=== PATIENT | female | born 1960 | race Caucasian/White ===

== ENCOUNTER 2017-08-04 19:59 | Emergency (ER) | payer MEDICARE, MEDICAID ==
[~2017-08-04] VITALS: Ht 152.4 cm; Wt 48.5 kg
[~2017-08-04 19:59] MED LIST: HYDR-3245 PO; METH750T2 PO; MILN50TA PO
[2017-08-04] MEDS ORDERED: HYDROcodone/APAP 5/325 TABLET PO STA (20:55)
[2017-08-04] MEDS ORDERED: IBUPROFEN 200 MG TABLET PO ONE (21:00)
[2017-08-04] MEDS ORDERED: HYDROcodone/APAP 5/325 TABLET ONE (21:03)
[2017-08-04] MEDS ORDERED: IBUPROFEN 200 MG TABLET ONE (21:03)
[2017-08-04 21:31] VITALS: BP 112/62
== END 2017-08-04 21:34 | disposition home or self-care (01) ==
LOC: ED 21:27
DX: M13.111 Monoarthritis, not elsewhere classified, right shoulder (principal); F17.210 Nicotine dependence, cigarettes, uncomplicated
CPT/HCPCS: 99284

== ENCOUNTER 2017-08-26 21:14 | Emergency (ER) | payer MEDICARE, MEDICAID ==
[~2017-08-26] VITALS: Ht 152.4 cm; Wt 45.0 kg
[2017-08-26 22:12] VITALS: BP 101/58
== END 2017-08-26 22:27 | disposition home or self-care (01) ==
LOC: ED 22:12
DX: F10.220 Alcohol dependence with intoxication, uncomplicated (principal); E78.5 Hyperlipidemia, unspecified; F17.200 Nicotine dependence, unspecified, uncomplicated; Z72.9 Problem related to lifestyle, unspecified
CPT/HCPCS: 99283

== ENCOUNTER 2017-11-10 19:00 | Emergency (ER) | payer MEDICARE, MEDICAID ==
[~2017-11-10] VITALS: Ht 152.4 cm; Wt 50.0 kg
[2017-11-10 19:04] VITALS: BP 131/85
== END 2017-11-10 20:40 | disposition home or self-care (01) ==
LOC: ED 20:06
DX: S70.12XA Contusion of left thigh, initial encounter (principal); E78.5 Hyperlipidemia, unspecified; M19.90 Unspecified osteoarthritis, unspecified site; W01.0XXA Fall on same level from slipping, tripping and stumbling without subsequent striking against object, initial encounter; Y93.89 Activity, other specified; Y99.8 Other external cause status; Y92.009 Unspecified place in unspecified non-institutional (private) residence as the place of occurrence of the external cause
CPT/HCPCS: 72110; 99284

== ENCOUNTER 2017-12-09 15:03 | Emergency (ER) | payer MEDICARE, MEDICAID ==
[~2017-12-09] VITALS: Ht 152.4 cm; Wt 51.5 kg
[2017-12-09] MEDS ORDERED: ALBU90AE INH (15:19)
[2017-12-09] MEDS ORDERED: GABA-827 PO (15:19)
[2017-12-09] MEDS ORDERED: HYDR200T72 PO (15:19)
[2017-12-09] MEDS ORDERED: steroid inhaler INH (15:19)
[2017-12-09] MEDS ORDERED: OMEP10CA4 PO (15:19)
[2017-12-09] MEDS ORDERED: IBUP-1222 PO (15:19)
[2017-12-09] MEDS ORDERED: AMIT10TA PO (15:19)
[2017-12-09] MEDS ORDERED: IBUPROFEN 200 MG TABLET ONE (15:21)
[2017-12-09] MEDS ORDERED: IBUPROFEN 200 MG TABLET PO ONE (15:30)
[2017-12-09 15:53] VITALS: BP 101/58
== END 2017-12-09 16:21 | disposition home or self-care (01) ==
LOC: ED 16:15
DX: S90.32XA Contusion of left foot, initial encounter (principal); E78.5 Hyperlipidemia, unspecified; F17.200 Nicotine dependence, unspecified, uncomplicated; X50.1XXA Overexertion from prolonged static or awkward postures, initial encounter; Y93.89 Activity, other specified; Y99.8 Other external cause status; Y92.410 Unspecified street and highway as the place of occurrence of the external cause
CPT/HCPCS: 99284

== ENCOUNTER 2018-01-26 15:16 | Inpatient (IN) | payer MEDICARE, MEDICAID ==
[~2018-01-26] VITALS: Ht 152.4 cm; Wt 51.8 kg
[~2018-01-26 15:16] MED LIST changes: +ALBU90AE INH; +AMIT10TA PO; +GABA-827 PO; +HYDR200T72 PO; +IBUP-1222 PO; +OMEP10CA4 PO; +steroid inhaler INH
[2018-01-26 17:09] LABS: MEAN CORPUSCULAR HEMOGLOBIN 33.4 pg (27.0-34.8); MEAN CORPUSCULAR HGB CONC 33.5 g/dL (32.4-35.8); MEAN CORPUSCULAR VOLUME 99.7 fL (80-100); MEAN PLATELET VOLUME 8.2 fL (7.4-10.4); PLATELET COUNT 294 x10^3/uL (130-400); RED BLOOD COUNT 4.02 x10^6/uL (3.82-5.3); RED CELL DISTRIBUTION WIDTH 15.7 % (9.6-15.2)
[2018-01-26 17:16] LABS: ALBUMIN 3.2 g/dL (3.4-5.0); ANION GAP 9 mmol/L (5-15); CALCIUM 9.3 mg/dL (8.5-10.1); CHLORIDE 104 mmol/L (98-107); CREATININE 0.87 mg/dL (0.55-1.02)
[2018-01-26 17:30] LABS: MD YES
[2018-01-26 17:33] LABS: <PLATELET ESTIMATE> ADEQUATE; <PLT MORPHOLOGY> NORMAL PLT MORPH; ANISOCYTOSIS 1+; BAND#(MANUAL) 4.08 x10^3/uL; BANDS%(MANUAL) 20 % (0-7); EOS% (MANUAL) 1 % (1-7); LYMPH#(MANUAL) 4.08 x10^3/uL (1-3.4); LYMPHS% (MANUAL) 20 % (22-44); MONOS#(MANUAL) 1.43 x10^3/uL (0.3-2.7); MONOS% (MANUAL) 7 % (2-9); POLYCHROMASIA 1+; SEG#(MANUAL) 10.61 x10^3/uL (1.8-6.8); SEGS% (MANUAL) 52 % (42-75)
[2018-01-26] MEDS ORDERED: PROM25SU35 PR (19:24)
[2018-01-26] MEDS ORDERED: ACETAMINOPHEN 325 MG TABLET PO PRN (22:00)
[2018-01-26] MEDS ORDERED: GUAIFENESIN/DM 200-20MG, 10ML UDC PO PRN (22:00)
[2018-01-26] MEDS ORDERED: ALBUTEROL/IPRATROPIUM 2.5MG/0.5MG, 3 ML NPPB PRN (22:00)
[2018-01-26] MEDS: ENOXAPARIN 40 MG/0.4 ML SQ SCH (22:49)
[2018-01-26] MEDS: NICOTINE 14MG/24 HR PATCH.TD24 TD SCH (22:50)
[2018-01-26] MEDS: TEMAZEPAM 15 MG CAPSULE PO PRN (22:50)
[2018-01-26] MEDS: GABAPENTIN 300 MG CAPSULE PO SCH (22:50)
[2018-01-26] MEDS: AMITRIPTYLINE 50 MG TABLET PO SCH (22:50)
[2018-01-26] MEDS: IBUPROFEN 600 MG TABLET PO SCH (22:50)
[2018-01-26] MEDS: SODIUM CHLORIDE 0.9% 1,000 ML IV SCH (22:51)
[2018-01-26] MEDS: CEFTRIAXONE PMX 1GM/50ML 50 ML IV SCH (22:51)
[2018-01-26 23:07] VITALS: BP 134/81
[2018-01-27] MEDS: AZITHROMYCIN 500 MG in SODIUM CHLORIDE 0.9% 250 ML IV SCH (00:02)
[2018-01-27 02:55] VITALS: BP 109/70
[2018-01-27] MEDS: ALBUTEROL SULFATE 2.5 MG/3 ML NPPB SCH ×4 (06:39→19:16)
[2018-01-27 06:45] VITALS: BP 111/75
[2018-01-27 09:06] LABS: MEAN CORPUSCULAR HEMOGLOBIN 33.2 pg (27.0-34.8); MEAN CORPUSCULAR VOLUME 100.6 fL (80-100); MEAN PLATELET VOLUME 8.2 fL (7.4-10.4); PLATELET COUNT 263 x10^3/uL (130-400); RED BLOOD COUNT 3.63 x10^6/uL (3.82-5.3); RED CELL DISTRIBUTION WIDTH 15.9 % (9.6-15.2)
[2018-01-27 09:14] LABS: ANION GAP 10 mmol/L (5-15); CALCIUM 8.4 mg/dL (8.5-10.1); CHLORIDE 110 mmol/L (98-107); CREATININE 0.58 mg/dL (0.55-1.02)
[2018-01-27] MEDS ORDERED: POTASSIUM CHLORIDE 20 MEQ TAB.ER.PRT PO ONE (09:30)
[2018-01-27 09:38] LABS: BASOPHILS # (AUTO) 0.09 x10^3/uL (0-0.1); BASOPHILS % (AUTO) 1 % (0-1); EOSINOPHILS # (AUTO) 0.23 x10^3/uL (0-0.4); EOSINOPHILS % (AUTO) 2 % (1-7); LYMPHOCYTES # (AUTO) 2.68 x10^3/uL (1-3.4); LYMPHOCYTES % (AUTO) 22 % (22-44); MD SCAN; MONOCYTES # (AUTO) 0.65 x10^3/uL (0.2-0.8); MONOCYTES % (AUTO) 5 % (2-9); NEUTROPHILS # (AUTO) 8.57 x10^3/uL (1.8-6.8); NEUTROPHILS % (AUTO) 70 % (42-75)
[2018-01-27] MEDS: GABAPENTIN 300 MG CAPSULE PO SCH ×2 (10:35→20:33)
[2018-01-27] MEDS: IBUPROFEN 600 MG TABLET PO SCH ×3 (10:35→20:33)
[2018-01-27] MEDS: CEFTRIAXONE PMX 1GM/50ML 50 ML IV SCH ×2 (10:35→20:33)
[2018-01-27] MEDS: SODIUM CHLORIDE 0.9% 1,000 ML IV SCH ×2 (10:35→16:15)
[2018-01-27] MEDS: GUAIFENESIN ER 600 MG TABLET PO SCH ×2 (10:35→20:33)
[2018-01-27] MEDS: BUDESONIDE 0.5 MG/2 ML INHA NPPB SCH ×2 (10:42→19:16)
[2018-01-27 12:44] VITALS: BP 109/78
[2018-01-27 19:08] VITALS: BP 121/78
[2018-01-27] MEDS: NICOTINE 14MG/24 HR PATCH.TD24 TD SCH (20:33)
[2018-01-27] MEDS: AMITRIPTYLINE 50 MG TABLET PO SCH (20:33)
[2018-01-27] MEDS: ENOXAPARIN 40 MG/0.4 ML SQ SCH (20:33)
[2018-01-27] MEDS: TEMAZEPAM 15 MG CAPSULE PO PRN (20:33)
[2018-01-28] MEDS: AZITHROMYCIN 500 MG in SODIUM CHLORIDE 0.9% 250 ML IV SCH (00:13)
[2018-01-28 02:14] VITALS: BP 135/89
[2018-01-28] MEDS: SODIUM CHLORIDE 0.9% 1,000 ML IV SCH ×2 (02:34→10:06)
[2018-01-28 05:13] LABS: ANION GAP 7 mmol/L (5-15); CALCIUM 7.8 mg/dL (8.5-10.1); CHLORIDE 116 mmol/L (98-107); CREATININE 0.68 mg/dL (0.55-1.02)
[2018-01-28 05:22] LABS: BASOPHILS # (AUTO) 0.03 x10^3/uL (0-0.1); BASOPHILS % (AUTO) 0 % (0-1); EOSINOPHILS % (AUTO) 4 % (1-7); LYMPHOCYTES # (AUTO) 3.19 x10^3/uL (1-3.4); LYMPHOCYTES % (AUTO) 33 % (22-44); MD NO; MEAN CORPUSCULAR HEMOGLOBIN 33.8 pg (27.0-34.8); MEAN CORPUSCULAR HGB CONC 33.1 g/dL (32.4-35.8); MEAN CORPUSCULAR VOLUME 102.3 fL (80-100); MEAN PLATELET VOLUME 8.3 fL (7.4-10.4); MONOCYTES # (AUTO) 0.83 x10^3/uL (0.2-0.8); MONOCYTES % (AUTO) 9 % (2-9); NEUTROPHILS # (AUTO) 5.21 x10^3/uL (1.8-6.8); NEUTROPHILS % (AUTO) 54 % (42-75); PLATELET COUNT 305 x10^3/uL (130-400); RED BLOOD COUNT 3.47 x10^6/uL (3.82-5.3); RED CELL DISTRIBUTION WIDTH 16.1 % (9.6-15.2)
[2018-01-28] MEDS: ALBUTEROL SULFATE 2.5 MG/3 ML NPPB SCH ×3 (06:59→14:32)
[2018-01-28] MEDS: BUDESONIDE 0.5 MG/2 ML INHA NPPB SCH (06:59)
[2018-01-28 07:49] VITALS: BP 130/85
[2018-01-28] MEDS ORDERED: AZIT250T PO (08:13)
[2018-01-28] MEDS ORDERED: CEFD300C37 PO (08:13)
[2018-01-28] MEDS ORDERED: GUAI600T31 PO (08:13)
[2018-01-28] MEDS: GUAIFENESIN ER 600 MG TABLET PO SCH (08:43)
[2018-01-28] MEDS: GABAPENTIN 300 MG CAPSULE PO SCH (08:43)
[2018-01-28] MEDS: IBUPROFEN 600 MG TABLET PO SCH ×2 (08:43→16:00)
[2018-01-28] MEDS: CEFTRIAXONE PMX 1GM/50ML 50 ML IV SCH (10:06)
[2018-01-28 13:12] VITALS: BP 148/90
== END 2018-01-28 17:54 | disposition home or self-care (01) | DRG 871 ==
LOC: ED 17:51 → EDIP 19:42 → 3NE 20:06
PROVIDERS: ADMIT Internal Medicine; ATTEND Internal Medicine
DX: A41.9 Sepsis, unspecified organism (principal); J15.9 Unspecified bacterial pneumonia; J96.91 Respiratory failure, unspecified with hypoxia; J44.0 Chronic obstructive pulmonary disease with (acute) lower respiratory infection; F17.203 Nicotine dependence unspecified, with withdrawal; M06.9 Rheumatoid arthritis, unspecified; G89.4 Chronic pain syndrome; E78.5 Hyperlipidemia, unspecified; I70.0 Atherosclerosis of aorta; Z79.899 Other long term (current) drug therapy; Z91.030 Bee allergy status; Z88.2 Allergy status to sulfonamides; Z91.018 Allergy to other foods
CPT/HCPCS: 36415; 71046; 71250; 80048; 82040; 83605; 84145; 85025; 87040; 87070; 87205; 93005; 94640; 99291; G0378; J0456; J0696; J1650; J7613; J7626; J7030; J7050

== ENCOUNTER 2018-02-12 16:43 | Emergency (ER) | payer MEDICARE, MEDICAID ==
[~2018-02-12] VITALS: Ht 152.4 cm; Wt 55.0 kg
[~2018-02-12 16:43] MED LIST changes: +AZIT250T PO; +CEFD300C37 PO; +GUAI600T31 PO; +PROM25SU35 PR
--- NOTE | 2018-02-12 17:11 | NUR ---
PATIENT SLEEPING WITH COVERS OVER HEAD.
[2018-02-12 18:05] LABS: ANION GAP 9 mmol/L (5-15); CALCIUM 9.3 mg/dL (8.5-10.1); CHLORIDE 111 mmol/L (98-107); SALICYLATE LEVEL 4.5 mg/dL (2.8-20.0)
[2018-02-12 18:08] LABS: ALANINE AMINOTRANSFERASE 20 U/L (12-78); ALKALINE PHOSPHATASE 64 U/L (45-117); BILIRUBIN,TOTAL 0.2 mg/dL (0.2-1.0); CREATININE 0.77 mg/dL (0.55-1.02); TOTAL PROTEIN 8.2 g/dL (6.4-8.2)
[2018-02-12 18:09] LABS: ACETAMINOPHEN < 2 mcg/mL (10-30); MEAN CORPUSCULAR HGB CONC 33.3 g/dL (32.4-35.8); MEAN CORPUSCULAR VOLUME 102.1 fL (80-100); MEAN PLATELET VOLUME 8.5 fL (7.4-10.4); PLATELET COUNT 380 x10^3/uL (130-400); RED BLOOD COUNT 4.03 x10^6/uL (3.82-5.3)
[2018-02-12 18:16] LABS: BASOPHILS # (AUTO) 0.08 x10^3/uL (0-0.1); BASOPHILS % (AUTO) 1 % (0-1); EOSINOPHILS # (AUTO) 0.32 x10^3/uL (0-0.4); EOSINOPHILS % (AUTO) 4 % (1-7); LYMPHOCYTES # (AUTO) 4.48 x10^3/uL (1-3.4); LYMPHOCYTES % (AUTO) 50 % (22-44); MONOCYTES # (AUTO) 0.46 x10^3/uL (0.2-0.8); MONOCYTES % (AUTO) 5 % (2-9); NEUTROPHILS # (AUTO) 3.62 x10^3/uL (1.8-6.8); NEUTROPHILS % (AUTO) 40 % (42-75); RED CELL DISTRIBUTION WIDTH 15.8 % (9.6-15.2)
[2018-02-12 18:32] LABS: HEMOGRAM NOTE RECHECKED
[2018-02-12 18:33] LABS: MD SCAN
--- NOTE | 2018-02-12 18:38 | NUR ---
PATIENT RESTING. NEED UA
--- NOTE | 2018-02-12 19:13 | NUR ---
REPORT FROM LULY LEHMAN ASLEEP RESOPNTS TO VERBAL COMMAND
[2018-02-12 21:01] VITALS: BP 100/58
== END 2018-02-12 21:03 | disposition home or self-care (01) ==
LOC: ED 17:59
DX: F10.120 Alcohol abuse with intoxication, uncomplicated (principal); J44.9 Chronic obstructive pulmonary disease, unspecified; M19.90 Unspecified osteoarthritis, unspecified site; E78.5 Hyperlipidemia, unspecified
CPT/HCPCS: 36415; 71045; 80053; 80307; 80329; 85025; 99284; G0480

== ENCOUNTER 2018-03-06 17:40 | Emergency (ER) | payer MEDICARE, MEDICAID ==
[~2018-03-06] VITALS: Ht 152.4 cm; Wt 49.0 kg
--- NOTE | 2018-03-06 18:43 | NUR ---
PT AMBULATORY TO ED ROOM 35, THEN TO [facility] BR W/OUT INCIDENT; GAIT STEADY.
[2018-03-06] MEDS ORDERED: BENZONATATE 100 MG CAPSULE PO ONE (19:00)
[2018-03-06 19:20] LABS: BASOPHILS # (AUTO) 0.08 x10^3/uL (0-0.1); BASOPHILS % (AUTO) 1 % (0-1); EOSINOPHILS # (AUTO) 0.17 x10^3/uL (0-0.4); EOSINOPHILS % (AUTO) 2 % (1-7); LYMPHOCYTES # (AUTO) 3.78 x10^3/uL (1-3.4); LYMPHOCYTES % (AUTO) 52 % (22-44); MD NO; MEAN CORPUSCULAR HEMOGLOBIN 34.6 pg (27.0-34.8); MEAN CORPUSCULAR VOLUME 101.9 fL (80-100); MEAN PLATELET VOLUME 7.4 fL (7.4-10.4); MONOCYTES # (AUTO) 0.74 x10^3/uL (0.2-0.8); MONOCYTES % (AUTO) 10 % (2-9); NEUTROPHILS # (AUTO) 2.48 x10^3/uL (1.8-6.8); NEUTROPHILS % (AUTO) 34 % (42-75); PLATELET COUNT 311 x10^3/uL (130-400); RED BLOOD COUNT 3.81 x10^6/uL (3.82-5.3); RED CELL DISTRIBUTION WIDTH 16.2 % (9.6-15.2)
[2018-03-06] MEDS ORDERED: FLOVENT (19:22)
[2018-03-06] MEDS ORDERED: ALBU18HF INH (19:22)
[2018-03-06] MEDS ORDERED: BENZONATATE 100 MG CAPSULE ONE (19:38)
--- NOTE | 2018-03-06 19:40 | NUR ---
DR MILLAN CONSULTED RE: PAIN FOR PT'S C/O MIGRAINE. VO: TYLENOL 1000MG PO.
[2018-03-06] MEDS ORDERED: ACETAMINOPHEN 500 MG TABLET ONE (19:41)
[2018-03-06] MEDS ORDERED: ACETAMINOPHEN 500 MG TABLET PO ONE (20:00)
--- NOTE | 2018-03-06 20:35 | NUR ---
RESTING QUIETLY ON BED; HEAD COVERED W/ BLANKET. OCCASIONAL DRY COUGH NOTED.
[2018-03-06 20:55] VITALS: BP 138/65
--- NOTE | 2018-03-06 20:55 | NUR ---
JOSUÉ RN ASSISTING PRIMARY RN BARTOLO WITH DISCHARGE ONLY. PT GIVEN DISCHARGE INSTRUCTIONS,VERBALIZED UNDERSTANDING, HANDOUTS AND RX IN HAND. AMBULATED TO CHECKOUT DESK WITH STEADY GAIT. PT PROVIDED TAXI VOUCHER PER REQUEST AND DR. MILLAN.
== END 2018-03-06 20:58 | disposition home or self-care (01) ==
LOC: ED 20:07
DX: R05 Cough (principal); R51 Headache; J44.9 Chronic obstructive pulmonary disease, unspecified; E78.5 Hyperlipidemia, unspecified; M19.90 Unspecified osteoarthritis, unspecified site; F17.200 Nicotine dependence, unspecified, uncomplicated; Z72.9 Problem related to lifestyle, unspecified; Z59.0 Homelessness
CPT/HCPCS: 36415; 71046; 85025; 99284

== ENCOUNTER 2018-03-08 11:20 | Emergency (ER) | payer MEDICARE, MEDICAID ==
[~2018-03-08] VITALS: Ht 152.4 cm; Wt 50.0 kg
[~2018-03-08 11:20] MED LIST changes: +ALBU18HF INH; +FLOVENT
[2018-03-08 11:23] VITALS: BP 111/83
--- NOTE | 2018-03-08 13:01 | NUR ---
Patient/Caregiver given discharge instructions and they have confirmed that they understand the instructions. Patient ambulatory with steady gait.
== END 2018-03-08 13:02 | disposition home or self-care (01) ==
LOC: ED 11:49
DX: J15.9 Unspecified bacterial pneumonia (principal); F17.200 Nicotine dependence, unspecified, uncomplicated
CPT/HCPCS: 71046; 99283

== ENCOUNTER 2018-03-28 12:01 | Emergency (ER) | payer MEDICARE, MEDICAID ==
--- NOTE | 2018-03-28 12:30 | NUR ---
NO ANSWER [phone]
--- NOTE | 2018-03-28 12:42 | NUR ---
NO ANSWER X [phone]
--- NOTE | 2018-03-28 13:09 | NUR ---
NO ANSWER IN LOBBY X3
--- NOTE | 2018-03-28 13:14 | NUR ---
PT CALLED 3 TIMES NOW IN OUR ED. PT HAS LEFT WITHOUT BEING SEEN.
== END 2018-03-28 13:16 | disposition left against medical advice (07) ==
LOC: ED 13:10
DX: R05 Cough (principal); Z53.21 Procedure and treatment not carried out due to patient leaving prior to being seen by health care provider

== ENCOUNTER 2018-03-28 15:21 | Inpatient (IN) | payer MEDICARE, MEDICAID ==
[~2018-03-28] VITALS: Ht 152.4 cm; Wt 48.7 kg
[2018-03-28] MEDS ORDERED: ASPIRIN 81 MG TABLET CHEW ONE (15:37)
[2018-03-28] MEDS ORDERED: SODIUM CHLORIDE FLUSH 10ML SYR IVF ONE (16:00)
[2018-03-28] MEDS ORDERED: ASPIRIN 81 MG TABLET CHEW PO ONE (16:00)
[2018-03-28] MEDS ORDERED: MAALOX/HYOSCYAMINE/LIDOCAINE 45 ML BTL PO ONE (16:00)
--- NOTE | 2018-03-28 16:10 | NUR ---
PT NOTED TO HAVE CP CONTINUOUS. COUGH WITH GREEN SPUTUM. AFTER IV AND BLOOD DRAW, PT TO XRAY
[2018-03-28 16:12] LABS: BASOPHILS # (AUTO) 0.04 x10^3/uL (0-0.1); BASOPHILS % (AUTO) 1 % (0-1); EOSINOPHILS # (AUTO) 0.18 x10^3/uL (0-0.4); EOSINOPHILS % (AUTO) 2 % (1-7); LYMPHOCYTES # (AUTO) 3.06 x10^3/uL (1-3.4); LYMPHOCYTES % (AUTO) 40 % (22-44); MD NO; MEAN CORPUSCULAR HEMOGLOBIN 34.8 pg (27.0-34.8); MEAN CORPUSCULAR HGB CONC 33.5 g/dL (32.4-35.8); MEAN PLATELET VOLUME 8.9 fL (7.4-10.4); MONOCYTES # (AUTO) 0.46 x10^3/uL (0.2-0.8); MONOCYTES % (AUTO) 6 % (2-9); NEUTROPHILS # (AUTO) 3.98 x10^3/uL (1.8-6.8); NEUTROPHILS % (AUTO) 52 % (42-75); PLATELET COUNT 211 x10^3/uL (130-400); RED BLOOD COUNT 4.27 x10^6/uL (3.82-5.3); RED CELL DISTRIBUTION WIDTH 17.9 % (9.6-15.2)
[2018-03-28] MEDS ORDERED: MAALOX/HYOSCYAMINE/LIDOCAINE 45 ML BTL ONE (16:17)
[2018-03-28 16:21] LABS: ANION GAP 11 mmol/L (5-15); CHLORIDE 103 mmol/L (98-107)
[2018-03-28 16:27] LABS: ALANINE AMINOTRANSFERASE 103 U/L (12-78); ALKALINE PHOSPHATASE 60 U/L (45-117); BILIRUBIN,TOTAL 0.6 mg/dL (0.2-1.0); CREATININE 0.87 mg/dL (0.55-1.02); TOTAL PROTEIN 8.5 g/dL (6.4-8.2); TROPONIN I < 0.015 ng/mL (0.000-0.045)
[2018-03-28] MEDS ORDERED: ONDANSETRON ODT 4 MG PO PRN (17:00)
[2018-03-28] MEDS ORDERED: LORazepam 2 MG/ML, 1ML IV PRN ×3 (17:00)
[2018-03-28] MEDS ORDERED: LORazepam 1MG TABLET PO PRN (17:00)
[2018-03-28] MEDS ORDERED: PROMETHAZINE 25 MG/ML, 1ML IM PRN (17:00)
[2018-03-28] MEDS ORDERED: ONDANSETRON 2MG/ML, 2ML IVPush PRN (17:00)
[2018-03-28 17:11] LABS: INTERNATIONAL NORMALIZED RATIO 1.05 (0.93-1.1); PROTHROMBIN TIME 11.1 Seconds (9.6-11.5)
--- NOTE | 2018-03-28 17:15 | NUR ---
PT VOMITED LARGE AMOUNT OF LIQUID. TO BE MEDIATED FOR SAME
[2018-03-28] MEDS ORDERED: ONDANSETRON 2MG/ML, 2ML ONE (17:24)
[2018-03-28] MEDS ORDERED: KETOROLAC 30 MG/1 ML ONE (17:25)
[2018-03-28] MEDS: KETOROLAC 30 MG/1 ML IV PRN (17:41)
[2018-03-28] MEDS ORDERED: LORazepam 2 MG/ML, 1ML ONE (18:25)
[2018-03-28] MEDS ORDERED: ALBUTEROL SULFATE 2.5 MG/3 ML NPPB PRN (18:30)
--- NOTE | 2018-03-28 18:31 | NUR ---
PT STATES PAIN IMPROVED TO 7/10 AND NAUSEA IMPROVED SINCE MEDICATED FOR SAME. ADDITIONALLY MEDICATED PER ALCOHOL WITHDRAWAL PROTOCOL SCALE
[2018-03-28 19:23] VITALS: BP 155/101
[2018-03-28] MEDS: POTASSIUM CHLORIDE 20 MEQ, MAGNESIUM SULFATE 1 GM, FOLIC ACID 1 MG, MVI ADULT 10 ML in ... IV SCH (20:15)
[2018-03-28] MEDS: ALBUTEROL SULFATE 2.5 MG/3 ML NPPB SCH (20:25)
[2018-03-28] MEDS: NICOTINE 14MG/24 HR PATCH.TD24 TD SCH (21:10)
[2018-03-28] MEDS: THIAMINE 100MG TABLET PO SCH (21:10)
[2018-03-28] MEDS: AMITRIPTYLINE 50 MG TABLET PO SCH (21:10)
[2018-03-28] MEDS: HEPARIN 5,000 UNITS/ML, 1ML SQ SCH (21:10)
[2018-03-28] MEDS: morphine SULFATE 10 MG/ML, 1ML IVPush PRN (21:11)
[2018-03-28] MEDS: LACTATED RINGERS 1,000 ML IV SCH (23:40)
[2018-03-29] MEDS: LORazepam 0.5MG TABLET PO PRN (00:07)
[2018-03-29] MEDS: ALBUTEROL SULFATE 2.5 MG/3 ML NPPB SCH ×6 (00:55→18:40)
[2018-03-29 02:03] VITALS: BP 131/78
[2018-03-29] MEDS: LACTATED RINGERS 1,000 ML IV SCH ×3 (03:16→17:21)
[2018-03-29 04:21] LABS: BASOPHILS # (AUTO) 0.04 x10^3/uL (0-0.1); BASOPHILS % (AUTO) 1 % (0-1); EOSINOPHILS # (AUTO) 0.18 x10^3/uL (0-0.4); EOSINOPHILS % (AUTO) 3 % (1-7); LYMPHOCYTES % (AUTO) 41 % (22-44); MD NO; MEAN CORPUSCULAR HEMOGLOBIN 34.9 pg (27.0-34.8); MEAN CORPUSCULAR HGB CONC 33.2 g/dL (32.4-35.8); MEAN CORPUSCULAR VOLUME 105.3 fL (80-100); MEAN PLATELET VOLUME 8.9 fL (7.4-10.4); MONOCYTES # (AUTO) 0.39 x10^3/uL (0.2-0.8); MONOCYTES % (AUTO) 5 % (2-9); NEUTROPHILS # (AUTO) 3.73 x10^3/uL (1.8-6.8); NEUTROPHILS % (AUTO) 51 % (42-75); PLATELET COUNT 158 x10^3/uL (130-400); RED CELL DISTRIBUTION WIDTH 17.1 % (9.6-15.2)
[2018-03-29 04:27] LABS: ALBUMIN 3.3 g/dL (3.4-5.0); ANION GAP 5 mmol/L (5-15); CALCIUM 8.6 mg/dL (8.5-10.1); CHLORIDE 104 mmol/L (98-107)
[2018-03-29 04:37] LABS: ALANINE AMINOTRANSFERASE 75 U/L (12-78); ALKALINE PHOSPHATASE 47 U/L (45-117); BILIRUBIN,TOTAL 0.9 mg/dL (0.2-1.0); CHOL/HDL RATIO 2.2; CHOLESTEROL, TOTAL 195 mg/dL (140-239); CREATININE 0.79 mg/dL (0.55-1.02); HDL CHOL % 45 % (28-40); HDL CHOLESTEROL (DIRECT) 88 mg/dL (40-60); LDL CHOLESTEROL,CALCULATED 95 mg/dL (54-169); LDL/HDL RATIO 1.1 (0.5-3.0); TOTAL PROTEIN 6.9 g/dL (6.4-8.2); TRIGLYCERIDES 58 mg/dL (50-200); VLDL CHOLESTEROL 12 mg/dL (0-25)
[2018-03-29 04:42] LABS: HEMOGLOBIN A1C 4.8 % (4.2-6.3)
[2018-03-29] MEDS: KETOROLAC 30 MG/1 ML IV PRN ×4 (05:37→18:27)
[2018-03-29] MEDS: HEPARIN 5,000 UNITS/ML, 1ML SQ SCH ×3 (05:38→21:13)
[2018-03-29 08:39] VITALS: BP 152/79
[2018-03-29] MEDS: PANTOPRAZOLE 40 MG IV IVPush SCH (08:50)
[2018-03-29 11:07] LABS: AMPHETAMINE SCREEN, URINE Negative (Negative); BARBITURATE SCREEN, URINE Negative (Negative)
[2018-03-29 11:09] LABS: BENZODIAZEPINE SCREEN, URINE Negative (Negative); CANNABINOID SCREEN, URINE Negative (Negative); COCAINE SCREEN, URINE Negative (Negative); METHADONE SCREEN, URINE Negative (Negative); OPIATE SCREEN, URINE Negative (Negative)
[2018-03-29] MEDS: morphine SULFATE 10 MG/ML, 1ML IVPush PRN ×2 (13:46→22:34)
[2018-03-29 15:22] VITALS: BP 155/84
[2018-03-29] MEDS: LORazepam 2 MG/ML, 1ML IV PRN ×2 (15:52→19:20)
[2018-03-29] MEDS: NICOTINE 14MG/24 HR PATCH.TD24 TD SCH (17:20)
[2018-03-29 20:22] VITALS: BP 136/88
[2018-03-29] MEDS: AMITRIPTYLINE 50 MG TABLET PO SCH (21:13)
[2018-03-29] MEDS: THIAMINE 100MG TABLET PO SCH (21:13)
[2018-03-29] MEDS: POTASSIUM CHLORIDE 20 MEQ, MAGNESIUM SULFATE 1 GM, FOLIC ACID 1 MG, MVI ADULT 10 ML in ... IV SCH (22:35)
[2018-03-30] MEDS: LORazepam 1MG TABLET PO PRN ×3 (00:46→13:21)
[2018-03-30 00:54] VITALS: BP 138/92
[2018-03-30] MEDS: LACTATED RINGERS 1,000 ML IV SCH ×2 (05:03→09:29)
[2018-03-30] MEDS: HEPARIN 5,000 UNITS/ML, 1ML SQ SCH ×3 (05:04→21:17)
[2018-03-30 05:46] LABS: ALBUMIN 3.1 g/dL (3.4-5.0); ANION GAP 6 mmol/L (5-15); CALCIUM 8.8 mg/dL (8.5-10.1); CHLORIDE 105 mmol/L (98-107)
[2018-03-30 05:50] LABS: ALANINE AMINOTRANSFERASE 50 U/L (12-78); ALKALINE PHOSPHATASE 46 U/L (45-117); BILIRUBIN,TOTAL 1.1 mg/dL (0.2-1.0); CREATININE 0.63 mg/dL (0.55-1.02); TOTAL PROTEIN 6.9 g/dL (6.4-8.2)
[2018-03-30] MEDS ORDERED: LACTATED RINGERS 500 ML IVBOLUS ONE (07:00)
[2018-03-30] MEDS: ALBUTEROL SULFATE 2.5 MG/3 ML NPPB SCH ×4 (07:00→20:00)
[2018-03-30 07:10] VITALS: BP 145/91
[2018-03-30] MEDS: PANTOPRAZOLE 40 MG IV IVPush SCH (07:45)
[2018-03-30] MEDS: OXYcodone IR 5MG TABLET PO PRN ×2 (13:21→20:06)
[2018-03-30 13:55] VITALS: BP 136/88
[2018-03-30] MEDS: NICOTINE 14MG/24 HR PATCH.TD24 TD SCH (18:09)
[2018-03-30] MEDS: ACETAMINOPHEN 325 MG TABLET PO PRN (20:06)
[2018-03-30] MEDS: AMITRIPTYLINE 50 MG TABLET PO SCH (20:06)
[2018-03-30] MEDS: LORazepam 0.5MG TABLET PO PRN (20:07)
[2018-03-30] MEDS: THIAMINE 100MG TABLET PO SCH (20:07)
[2018-03-30 20:14] VITALS: BP 135/79
[2018-03-30] MEDS: POTASSIUM CHLORIDE 20 MEQ, MAGNESIUM SULFATE 1 GM, FOLIC ACID 1 MG, MVI ADULT 10 ML in ... IV SCH (21:17)
[2018-03-31 01:25] VITALS: BP 118/77
[2018-03-31] MEDS: OXYcodone IR 5MG TABLET PO PRN (01:47)
[2018-03-31] MEDS: LORazepam 1MG TABLET PO PRN ×2 (02:03→08:02)
[2018-03-31 04:52] LABS: ANION GAP 6 mmol/L (5-15); CHLORIDE 108 mmol/L (98-107)
[2018-03-31 04:53] LABS: CREATININE 0.79 mg/dL (0.55-1.02)
[2018-03-31] MEDS: HEPARIN 5,000 UNITS/ML, 1ML SQ SCH ×3 (05:46→21:22)
[2018-03-31] MEDS: ALBUTEROL SULFATE 2.5 MG/3 ML NPPB SCH ×5 (07:17→21:34)
[2018-03-31 07:20] LABS: ALBUMIN 3.1 g/dL (3.4-5.0); BILIRUBIN, DIRECT 0.3 mg/dL (0.1-0.2)
[2018-03-31 07:22] LABS: BILIRUBIN,INDIRECT 0.6 mg/dL (0.0-2.0); BILIRUBIN,TOTAL 0.9 mg/dL (0.2-1.0); TOTAL PROTEIN 6.6 g/dL (6.4-8.2)
[2018-03-31] MEDS: PANTOPRAZOLE 40 MG IV IVPush SCH (08:02)
[2018-03-31] MEDS ORDERED: LORazepam 0.5MG TABLET PO PRN (10:00)
[2018-03-31] MEDS ORDERED: LORazepam 1MG TABLET PO PRN ×3 (10:00)
[2018-03-31 10:49] VITALS: BP 114/78
[2018-03-31 12:56] VITALS: BP 119/77
[2018-03-31] MEDS: ACETAMINOPHEN 325 MG TABLET PO PRN (13:42)
[2018-03-31] MEDS: NICOTINE 14MG/24 HR PATCH.TD24 TD SCH (17:09)
[2018-03-31] MEDS: KETOROLAC 30 MG/1 ML IV PRN (17:20)
[2018-03-31 20:01] VITALS: BP 136/89
[2018-03-31] MEDS: AMITRIPTYLINE 50 MG TABLET PO SCH (21:22)
[2018-04-01] MEDS: KETOROLAC 30 MG/1 ML IV PRN (05:26)
[2018-04-01] MEDS: HEPARIN 5,000 UNITS/ML, 1ML SQ SCH (05:26)
[2018-04-01 05:30] VITALS: BP 136/90
[2018-04-01] MEDS: ALBUTEROL SULFATE 2.5 MG/3 ML NPPB SCH ×2 (06:50→10:17)
[2018-04-01 06:54] VITALS: BP 113/74
[2018-04-01] MEDS ORDERED: GABA-827 PO (09:32)
[2018-04-01] MEDS ORDERED: AMIT50TA PO (09:32)
[2018-04-01] MEDS ORDERED: OMEP10CA4 PO (09:32)
[2018-04-01] MEDS ORDERED: FLUT12AE2 INH (09:32)
[2018-04-01] MEDS ORDERED: ALBU18HF INH (09:35)
[2018-04-01] MEDS: ACETAMINOPHEN 325 MG TABLET PO PRN (10:26)
== END 2018-04-01 14:20 | disposition home or self-care (01) | DRG 438 ==
LOC: ED 16:53 → EDIP 16:54 → 3NW 17:52 → DCLOUNGE 04-01 14:05
PROVIDERS: ADMIT Hospitalist; ATTEND Hospitalist
DX: K85.20 Alcohol induced acute pancreatitis without necrosis or infection (principal); J96.01 Acute respiratory failure with hypoxia; J18.9 Pneumonia, unspecified organism; F10.239 Alcohol dependence with withdrawal, unspecified; J98.11 Atelectasis; G93.40 Encephalopathy, unspecified; J44.0 Chronic obstructive pulmonary disease with (acute) lower respiratory infection; F10.229 Alcohol dependence with intoxication, unspecified; K21.9 Gastro-esophageal reflux disease without esophagitis; D75.89 Other specified diseases of blood and blood-forming organs; M06.9 Rheumatoid arthritis, unspecified; M79.7 Fibromyalgia; G89.29 Other chronic pain; R73.9 Hyperglycemia, unspecified; M19.90 Unspecified osteoarthritis, unspecified site; E78.5 Hyperlipidemia, unspecified; F17.210 Nicotine dependence, cigarettes, uncomplicated; K83.8 Other specified diseases of biliary tract; Z59.0 Homelessness; Z87.01 Personal history of pneumonia (recurrent); Z98.891 History of uterine scar from previous surgery; Z90.49 Acquired absence of other specified parts of digestive tract; Z90.89 Acquired absence of other organs; Z91.030 Bee allergy status; Z88.2 Allergy status to sulfonamides; Z91.018 Allergy to other foods
CPT/HCPCS: 36415; 71046; 76700; 80048; 80053; 80061; 80076; 80307; 83036; 83690; 83735; 83880; 84100; 84145; 84443; 84484; 85025; 85610; 93005; 94640; 96374; 99285; G0378; J1644; J1885; J2405; J3475; J3480; J7120; J7613; C9113; J2060; J2270; J7121

== ENCOUNTER 2018-07-30 15:46 | Emergency (ER) | payer MEDICARE, MEDICAID ==
[~2018-07-30] VITALS: Ht 152.4 cm; Wt 50.0 kg
[~2018-07-30 15:46] MED LIST changes: +AMIT50TA PO; +FLUT12AE2 INH
[2018-07-30] MEDS ORDERED: MAALOX/HYOSCYAMINE/LIDOCAINE 45 ML BTL ONE ×2 (16:17→17:15)
[2018-07-30] MEDS ORDERED: ONDANSETRON ODT 4 MG ONE (16:17)
--- NOTE | 2018-07-30 16:26 | NUR ---
SEE TRIAGE. PT STATES PAIN IN EPIGASTRIC AND THROAT AREA. PT SPITTING UP SALIVA AT THIS TIME. EMESIS BAGS, KLEENEX, AND SUCTION WITH YANKAUER PROVIDED TO PT. MEDS GIVEN PER ERP ORDER. BP CUFF, PULSE OX PLACED, CALL LIGHT WITHIN REACH.
[2018-07-30] MEDS ORDERED: MAALOX/HYOSCYAMINE/LIDOCAINE 45 ML BTL PO ONE ×2 (16:30→17:30)
[2018-07-30] MEDS ORDERED: ONDANSETRON ODT 4 MG PO ONE (16:30)
[2018-07-30] MEDS ORDERED: FAMOTIDINE 20 MG TABLET ONE (17:15)
[2018-07-30] MEDS ORDERED: FAMOTIDINE 20 MG TABLET PO ONE (17:30)
[2018-07-30 18:21] VITALS: BP 132/74
--- NOTE | 2018-07-30 18:21 | NUR ---
Patient/Caregiver given discharge instructions and they have confirmed that they understand the instructions. Patient ambulatory with steady gait.
== END 2018-07-30 18:23 | disposition home or self-care (01) ==
LOC: ED 16:41
DX: T18.128A Food in esophagus causing other injury, initial encounter (principal); J44.9 Chronic obstructive pulmonary disease, unspecified; E78.5 Hyperlipidemia, unspecified; X58.XXXA Exposure to other specified factors, initial encounter; Y93.89 Activity, other specified; Y92.89 Other specified places as the place of occurrence of the external cause; Y99.8 Other external cause status
CPT/HCPCS: 99284; Q0162

== ENCOUNTER 2018-07-31 20:18 | Emergency (ER) | payer MEDICARE, MEDICAID ==
[~2018-07-31] VITALS: Ht 152.4 cm; Wt 47.9 kg
--- NOTE | 2018-07-31 21:24 | NUR ---
pt to room from lobby
[2018-07-31 21:40] LABS: BASOPHILS # (AUTO) 0.02 x10^3/uL (0-0.1); BASOPHILS % (AUTO) 0 % (0-1); EOSINOPHILS % (AUTO) 3 % (1-7); LYMPHOCYTES # (AUTO) 3.13 x10^3/uL (1-3.4); LYMPHOCYTES % (AUTO) 42 % (22-44); MD NO; MEAN CORPUSCULAR HEMOGLOBIN 34.4 pg (27.0-34.8); MEAN CORPUSCULAR HGB CONC 33.4 g/dL (32.4-35.8); MEAN PLATELET VOLUME 8.6 fL (7.4-10.4); MONOCYTES # (AUTO) 0.46 x10^3/uL (0.2-0.8); MONOCYTES % (AUTO) 6 % (2-9); NEUTROPHILS # (AUTO) 3.66 x10^3/uL (1.8-6.8); NEUTROPHILS % (AUTO) 49 % (42-75); PLATELET COUNT 258 x10^3/uL (130-400); RED BLOOD COUNT 4.18 x10^6/uL (3.82-5.3); RED CELL DISTRIBUTION WIDTH 15.4 % (9.6-15.2)
[2018-07-31 21:49] LABS: ALANINE AMINOTRANSFERASE 60 U/L (12-78); ALBUMIN 3.7 g/dL (3.4-5.0); ANION GAP 8 mmol/L (5-15); CALCIUM 9.9 mg/dL (8.5-10.1); CHLORIDE 107 mmol/L (98-107); CREATININE 0.75 mg/dL (0.55-1.02)
[2018-07-31 21:52] LABS: ALKALINE PHOSPHATASE 64 U/L (45-117); BILIRUBIN,TOTAL 0.4 mg/dL (0.2-1.0); TOTAL PROTEIN 7.6 g/dL (6.4-8.2)
[2018-07-31] MEDS ORDERED: SODIUM CHLORIDE FLUSH 10ML SYR IVF ONE (22:00)
--- NOTE | 2018-07-31 22:04 | NUR ---
PT HERE FOR HAVING SOMETHING STUCK IN HER THROAT. PT HAD SAME ISSUE YESTERDAY WELL. PT REPORTS THAT SHE WAS SEEN HER AND GOT HELP. HOWEVER PT DID NOT FOLLOW DIETARY INSTRUCTIONS. PT REPORTS ALSO SHE DOES NOT HAVE HER DENTURES SO SHE IS NOT CHEWING HER FOOD WELL. PT CONNECTED TO ALL MONITORS AND CALL LIGHT IN REACH. PT PREPPED FOR ENDO TEAM. MD CONWAY TO CALL ENDO IN.
--- NOTE | 2018-07-31 22:22 | NUR ---
REPORT TO SHAKIR MACHADO.
[2018-07-31] MEDS ORDERED: PROPOFOL 10 MG/ML, 20ML ONE (22:38)
[2018-07-31] MEDS ORDERED: PROPOFOL 10 MG/ML, 20ML IVPush ONE (23:00)
[2018-07-31] MEDS ORDERED: OMNIPAQUE 350 MG/ML, 150 ML BOTTLE ONE (23:28)
--- NOTE | 2018-07-31 23:33 | NUR ---
PT CAME BACK FROM RADIOLOGY DEPT S/T ESOPHARGRAM NO LEAK PER DR PRATT NOTIFIED TO DR CONWAY PT IS RECOVERING NOW
--- NOTE | 2018-08-01 00:17 | NUR ---
OXYGEN SATS LOWER 90'S AT RA NOTIFIED TO DR CONWAY CXR IMAGING WAS NORDERED AND DONE WILL WAIT THE RESULT
--- NOTE | 2018-08-01 01:42 | NUR ---
imaging result was obtained dr juanita gay'd dc pt home pt's oxygen sats 92-95% ranged pt denied any other discomfort during drinking the water iv was out given dc instruction pt understood pt will follow up with gi md tomorrow pt up ambulated to check out with stable gait vss stable at bed side for riding pt home
[2018-08-01 01:45] VITALS: BP 132/98
== END 2018-08-01 01:47 | disposition home or self-care (01) ==
LOC: ED 22:43
DX: T18.128A Food in esophagus causing other injury, initial encounter (principal); I10 Essential (primary) hypertension; E78.5 Hyperlipidemia, unspecified; J44.9 Chronic obstructive pulmonary disease, unspecified; F17.210 Nicotine dependence, cigarettes, uncomplicated
CPT/HCPCS: 36415; 43247; 71046; 74220; 80053; 83690; 85025; 99152; 99285; J2704; Q9967

== ENCOUNTER 2019-02-14 12:44 | Emergency (ER) | payer MEDICARE, MEDICAID ==
[~2019-02-14] VITALS: Ht 152.4 cm; Wt 46.4 kg
[~2019-02-14 12:44] MED LIST changes: -OMEP10CA4 PO; +OMEP10CA5 PO
[2019-02-14] MEDS ORDERED: ONDANSETRON ODT 4 MG ONE (13:25)
[2019-02-14 13:26] LABS: BASOPHILS # (AUTO) 0.17 x10^3/uL (0-0.1); BASOPHILS % (AUTO) 2 % (0-1); EOSINOPHILS % (AUTO) 3 % (1-7); LYMPHOCYTES % (AUTO) 44 % (22-44); MD NO; MEAN CORPUSCULAR HEMOGLOBIN 33.4 pg (27.0-34.8); MEAN CORPUSCULAR HGB CONC 33.2 g/dL (32.4-35.8); MEAN CORPUSCULAR VOLUME 100.7 fL (80-100); MEAN PLATELET VOLUME 8.3 fL (7.4-10.4); MONOCYTES # (AUTO) 0.64 x10^3/uL (0.2-0.8); MONOCYTES % (AUTO) 9 % (2-9); NEUTROPHILS # (AUTO) 3.28 x10^3/uL (1.8-6.8); NEUTROPHILS % (AUTO) 43 % (42-75); PLATELET COUNT 361 x10^3/uL (130-400); RED BLOOD COUNT 4.21 x10^6/uL (3.82-5.3); RED CELL DISTRIBUTION WIDTH 15.3 % (9.6-15.2)
[2019-02-14] MEDS ORDERED: THIAMINE 100MG TABLET PO ONE (13:30)
[2019-02-14] MEDS ORDERED: ONDANSETRON ODT 4 MG PO ONE (13:30)
[2019-02-14 13:35] LABS: ALANINE AMINOTRANSFERASE 55 U/L (12-78); ALBUMIN 3.4 g/dL (3.4-5.0); ANION GAP 10 mmol/L (5-15); CALCIUM 9.6 mg/dL (8.5-10.1); CHLORIDE 103 mmol/L (98-107); CREATININE 0.68 mg/dL (0.55-1.02)
[2019-02-14 13:42] LABS: INTERNATIONAL NORMALIZED RATIO 1.02 (0.93-1.1); PROTHROMBIN TIME 10.7 Seconds (9.6-11.5)
--- NOTE | 2019-02-14 13:44 | NUR ---
Pt reports RUQ pain and N/V for past week. Pt reports daily ETOH, last drink today. Pt has hx pancreatitis. Denies fevers. Will cont to monitor
[2019-02-14 13:47] LABS: ALKALINE PHOSPHATASE 57 U/L (45-117); BILIRUBIN,TOTAL 0.5 mg/dL (0.2-1.0); TOTAL PROTEIN 7.8 g/dL (6.4-8.2)
[2019-02-14] MEDS ORDERED: THIAMINE 100MG TABLET ONE (13:47)
[2019-02-14 14:09] LABS: MICROSCOPIC AUTO
[2019-02-14 14:11] LABS: CULTURE INDICATED? YES
[2019-02-14 15:28] VITALS: BP 125/92
== END 2019-02-14 15:31 | disposition home or self-care (01) ==
LOC: ED 14:12
DX: K85.20 Alcohol induced acute pancreatitis without necrosis or infection (principal); R10.13 Epigastric pain; I10 Essential (primary) hypertension; J44.9 Chronic obstructive pulmonary disease, unspecified
CPT/HCPCS: 36415; 74022; 80053; 80307; 81001; 83690; 85025; 85610; 85730; 87077; 87086; 87186; 99284; Q0162

== ENCOUNTER 2019-03-06 05:17 | Emergency (ER) | payer MEDICARE, MEDICAID ==
[~2019-03-06] VITALS: Ht 152.4 cm; Wt 47.6 kg
[2019-03-06] MEDS ORDERED: KETOROLAC 30 MG/1 ML ONE (05:52)
[2019-03-06] MEDS ORDERED: ALBUTEROL/IPRATROPIUM 2.5MG/0.5MG, 3 ML NPPB ONE (06:00)
[2019-03-06] MEDS ORDERED: KETOROLAC 30 MG/1 ML IM ONE (06:00)
[2019-03-06] MEDS ORDERED: ALBUTEROL/IPRATROPIUM 2.5MG/0.5MG, 3 ML ONE (06:02)
[2019-03-06 06:26] LABS: BASOPHILS # (AUTO) 0.06 x10^3/uL (0-0.1); BASOPHILS % (AUTO) 1 % (0-1); EOSINOPHILS % (AUTO) 5 % (1-7); LYMPHOCYTES # (AUTO) 3.04 x10^3/uL (1-3.4); LYMPHOCYTES % (AUTO) 38 % (22-44); MD NO; MEAN CORPUSCULAR HGB CONC 32.9 g/dL (32.4-35.8); MEAN CORPUSCULAR VOLUME 103.2 fL (80-100); MEAN PLATELET VOLUME 8.4 fL (7.4-10.4); MONOCYTES # (AUTO) 1.02 x10^3/uL (0.2-0.8); MONOCYTES % (AUTO) 13 % (2-9); NEUTROPHILS # (AUTO) 3.44 x10^3/uL (1.8-6.8); NEUTROPHILS % (AUTO) 43 % (42-75); PLATELET COUNT 239 x10^3/uL (130-400); RED BLOOD COUNT 4.39 x10^6/uL (3.82-5.3); RED CELL DISTRIBUTION WIDTH 14.9 % (9.6-15.2)
--- NOTE | 2019-03-06 06:34 | NUR ---
PT RESTING COMFORTABLY. WARM BLANKETS PROVIDED. MONITOR IN PLACE.
[2019-03-06 06:39] LABS: ALBUMIN 2.7 g/dL (3.4-5.0); ANION GAP 8 mmol/L (5-15); CALCIUM 8.9 mg/dL (8.5-10.1); CHLORIDE 109 mmol/L (98-107)
[2019-03-06 06:45] LABS: ALANINE AMINOTRANSFERASE 39 U/L (12-78); ALKALINE PHOSPHATASE 69 U/L (45-117); BILIRUBIN,TOTAL 0.5 mg/dL (0.2-1.0); CREATININE 0.56 mg/dL (0.55-1.02); TOTAL PROTEIN 7.5 g/dL (6.4-8.2); TROPONIN I < 0.015 ng/mL (0.000-0.045)
[2019-03-06 07:33] VITALS: BP 102/59
== END 2019-03-06 07:34 | disposition home or self-care (01) ==
LOC: ED 07:23
DX: J18.9 Pneumonia, unspecified organism (principal); R07.89 Other chest pain; J44.9 Chronic obstructive pulmonary disease, unspecified; I10 Essential (primary) hypertension
CPT/HCPCS: 36415; 71046; 80053; 84484; 85025; 93005; 94640; 96372; 99284; J1885; J7620

== ENCOUNTER 2019-03-09 13:23 | Emergency (ER) | payer MEDICARE, MEDICAID ==
[~2019-03-09] VITALS: Ht 152.4 cm; Wt 45.5 kg
--- NOTE | 2019-03-09 13:34 | NUR ---
PT DAVE KHALIL FROM TRUCK SHE LIVES IN FOR SORE THROAT AND SOB. WAS HERE 2 DAYS AGO AND DX WITH PNA. RECEIVED PRESCRIPTION FOR ABX IN ER. PT STATES SHE FILLED IT AND HAS BEEN TAKING THEM. PT 86% ON RA. PER [facility], PT WAS GIVEN ONE ALBUTEROL TREATMENT AND ONE DUONEB TREATMENT AND WAS 100% ON RA AFTERWARD. EXPIRATORY WHEEZES HEARD POSTERIORLY THROUGHOUT. PT RESTING ON GURNEY. CONNECTED TO MONITOR. 94% ON 4L NC. EKG HAS BEEN PERFORMED. PIV TRIED TWICE IN AMBULANCE, UNSUCCESSFUL. PT IS UNSTEADY WITH AMBULATION TO BATHROOM ON ARRIVAL- STATES SHE HAS BEEN DRINKING TODAY. DRINKS 1 PINT OF WHISKEY PER DAY.
--- NOTE | 2019-03-09 14:24 | NUR ---
RADIOLOGY FINISHED AT BEDSIDE.
--- NOTE | 2019-03-09 14:24 | NUR ---
IV STARTED BY ADVANCED SPARERIBS TRIMMER.
[2019-03-09] MEDS ORDERED: ALBUTEROL/IPRATROPIUM 2.5MG/0.5MG, 3 ML NPPB ONE (14:30)
--- NOTE | 2019-03-09 14:41 | NUR ---
PT NOW 92% ON RA. RT ON THE WAY TO SEE PT.
[2019-03-09] MEDS ORDERED: ALBUTEROL SULFATE 2.5 MG/3 ML NPPB ONE (14:45)
[2019-03-09] MEDS ORDERED: ALBUTEROL SULFATE 2.5MG/0.5ML ONE (14:51)
--- NOTE | 2019-03-09 14:55 | NUR ---
RT AT BEDSIDE. PT 84% ON RA. TREATMENT BEING GIVEN NOW.
--- NOTE | 2019-03-09 15:10 | NUR ---
AFTER TREATMENT PT 84% ON RA. PLACED ON 3L NC. NOW 91%. AWARE.
[2019-03-09 16:02] VITALS: BP 108/65
--- NOTE | 2019-03-09 16:06 | NUR ---
PT AWARE OF DC PLAN. GETTING DRESSED NOW. PIV REMOVED.
--- NOTE | 2019-03-09 16:15 | NUR ---
PT REQUESTING MEDICATION TO HELP WITH SORE THROAT BEFORE SHE LEAVES. PT HAS PRESCRIPTION FROM LAST VISIT WITH YUAN ZAPATA. PT STATES SHE WAS UNABLE TO FILL IT BECAUSE OF FINANCIAL DIFFICULTY. PT PROVIDED WITH MEDICATION HELP SHEET AND MD AWARE THAT PT WOULD LIKE MEDICATION NOW.
--- NOTE | 2019-03-09 16:18 | NUR ---
PT NO LONGER IN ROOM. HAS LEFT ER.
== END 2019-03-09 16:20 | disposition home or self-care (01) ==
LOC: ED 14:46
DX: F10.220 Alcohol dependence with intoxication, uncomplicated (principal); I10 Essential (primary) hypertension; J44.9 Chronic obstructive pulmonary disease, unspecified; E78.5 Hyperlipidemia, unspecified; F17.200 Nicotine dependence, unspecified, uncomplicated; Z59.0 Homelessness; Y90.9 Presence of alcohol in blood, level not specified
CPT/HCPCS: 36415; 71045; 80307; 93005; 94640; 99284; J7613

== ENCOUNTER 2019-03-11 16:21 | Emergency (ER) | payer MEDICARE, MEDICAID ==
[~2019-03-11] VITALS: Ht 152.4 cm; Wt 60.0 kg
--- NOTE | 2019-03-11 16:51 | NUR ---
BIB BY JONO AFTER BYSTANDER CALLED 911 PATIENT IN CAR APPEARED TO BE PASSED OUT WITH PLASTIC BAG OVER FACE. [employer] HAD TO BREAK THE CAR WINDOW TO ACCESS PATIENT TO ASSURE SAFETY. EMS REPORTS PATIENT MAY HAVE TAKEN SOME TRAZEDONE & AMITRIPTYLINE TABLETS (UNKNOWN QUATITY) ON ARRIVAL APPEARS INTOXICATED (SMELLS OF ETOH). ABLE TO AMBULATE. DENIES TAKING ANY TABLETS. DENIES SI/HI ROOM AIR POX OF 84%-PLACED ON 2L NC. OTHERWISE VSS ER PROVIDER TO BEDSIDE-PLAN TO CHECK BASIC LABS AND MTF (TO AVOID PSYCHIATRIC HOLD AT THIS TIME)
[2019-03-11 17:02] LABS: ALANINE AMINOTRANSFERASE 49 U/L (12-78); ANION GAP 8 mmol/L (5-15); CALCIUM 8.8 mg/dL (8.5-10.1); CHLORIDE 114 mmol/L (98-107); CREATININE 0.75 mg/dL (0.55-1.02); SALICYLATE LEVEL 4.4 mg/dL (2.8-20.0)
[2019-03-11 17:04] LABS: ALKALINE PHOSPHATASE 76 U/L (45-117); BASOPHILS # (AUTO) 0.06 x10^3/uL (0-0.1); BASOPHILS % (AUTO) 1 % (0-1); BILIRUBIN,TOTAL 0.3 mg/dL (0.2-1.0); EOSINOPHILS # (AUTO) 0.52 x10^3/uL (0-0.4); EOSINOPHILS % (AUTO) 6 % (1-7); LYMPHOCYTES # (AUTO) 4.37 x10^3/uL (1-3.4); LYMPHOCYTES % (AUTO) 48 % (22-44); MD NO; MEAN CORPUSCULAR HEMOGLOBIN 33.6 pg (27.0-34.8); MEAN PLATELET VOLUME 7.5 fL (7.4-10.4); MONOCYTES # (AUTO) 0.82 x10^3/uL (0.2-0.8); MONOCYTES % (AUTO) 9 % (2-9); NEUTROPHILS # (AUTO) 3.38 x10^3/uL (1.8-6.8); NEUTROPHILS % (AUTO) 37 % (42-75); PLATELET COUNT 445 x10^3/uL (130-400); RED BLOOD COUNT 4.18 x10^6/uL (3.82-5.3); RED CELL DISTRIBUTION WIDTH 15.1 % (9.6-15.2)
--- NOTE | 2019-03-11 17:15 | NUR ---
PANTOGRAPH MACHINE OPERATOR RECEIVED CALL FROM LAB FOR CRITICAL ETOH OF 0.430 PROVIDER MADE AWARE PATIENT NOW RESTING COMFORTABLY ON GURNEY. BREATHING EVEN AND UNLABORED ON 2L NC. OTHERWISE VSS WILL CONTINUE TO CLOSELY MONITOR
[2019-03-11 18:50] VITALS: BP 102/61
--- NOTE | 2019-03-11 18:51 | NUR ---
REPORT TO SUZY MACHADO
--- NOTE | 2019-03-11 18:52 | NUR ---
Pt restining in room. Pts vss. On all monitors. fall precuations in place.
--- NOTE | 2019-03-11 21:17 | NUR ---
Patient/Caregiver given discharge instructions and they have confirmed that they understand the instructions. Patient ambulatory with steady gait. Pt dc with home who was to drive her home.
== END 2019-03-11 21:19 | disposition home or self-care (01) ==
LOC: ED 18:12
DX: F10.120 Alcohol abuse with intoxication, uncomplicated (principal); I10 Essential (primary) hypertension; E78.5 Hyperlipidemia, unspecified; J44.9 Chronic obstructive pulmonary disease, unspecified; F17.200 Nicotine dependence, unspecified, uncomplicated; Y90.9 Presence of alcohol in blood, level not specified
CPT/HCPCS: 36415; 80053; 80307; 83605; 85025; 93005; 99284

== ENCOUNTER 2019-04-16 15:42 | Emergency (ER) | payer MEDICAID, MEDICARE ==
[~2019-04-16] VITALS: Ht 154.9 cm; Wt 46.8 kg
[2019-04-16 15:44] VITALS: BP 116/71
--- NOTE | 2019-04-16 15:47 | NUR ---
RULING MACHINE FEEDER: EKG COMPLETED.
--- NOTE | 2019-04-16 18:01 | NUR ---
RAD called for Exam x 3 Not in lobby. [id number]. no answer
--- NOTE | 2019-04-16 19:01 | NUR ---
not in lobby
--- NOTE | 2019-04-16 19:13 | NUR ---
not in lobby
== END 2019-04-16 19:14 | disposition left against medical advice (07) ==
LOC: ED 16:42
DX: R07.89 Other chest pain (principal)
CPT/HCPCS: 93005; 99283

== ENCOUNTER 2019-05-09 13:58 | Emergency (ER) | payer MEDICARE ==
[~2019-05-09] VITALS: Ht 152.4 cm; Wt 48.0 kg
--- NOTE | 2019-05-09 14:15 | NUR ---
pt DAVE DE LA CRUZ, pt is a poor historian and reports that boyfriend called because he was worried about her. Pt reports N/V/D x3 days and a cough for a few days as well. Pt vital signs stable. changed into gown, unlabored respirations, on 2L NC, pt states she "is supposed to wear oxygen at night but cant do that in a car".
[2019-05-09] MEDS ORDERED: SODIUM CHLORIDE FLUSH 10ML SYR IVF ONE (14:30)
[2019-05-09] MEDS ORDERED: SODIUM CHLORIDE 0.9% 1,000ML IVBOLUS ONE (14:30)
[2019-05-09] MEDS ORDERED: ONDANSETRON 2MG/ML, 2ML IVPush ONE (14:30)
[2019-05-09] MEDS ORDERED: ONDANSETRON 2MG/ML, 2ML ONE (14:36)
[2019-05-09 15:03] LABS: ALANINE AMINOTRANSFERASE 39 U/L (12-78); ALBUMIN 3.4 g/dL (3.4-5.0); ANION GAP 12 mmol/L (5-15); CALCIUM 11.3 mg/dL (8.5-10.1); CHLORIDE 108 mmol/L (98-107); CREATININE 0.55 mg/dL (0.55-1.02)
[2019-05-09 15:08] LABS: ALKALINE PHOSPHATASE 51 U/L (45-117); TOTAL PROTEIN 8.2 g/dL (6.4-8.2); TROPONIN I < 0.015 ng/mL (0.000-0.045)
[2019-05-09 15:09] LABS: BILIRUBIN,TOTAL < 0.1 mg/dL (0.2-1.0)
--- NOTE | 2019-05-09 15:22 | NUR ---
pt in bed, watching tv, respirations even and unlabored, no signs of distress, will continue to monitor.
--- NOTE | 2019-05-09 15:30 | NUR ---
REPORT RECEIVED FROM SANTIAGO MACHADO, ASSUMED CARE OF PT. PT RESTING ON GURERMA AT THIS TIME, NAD NOTED
[2019-05-09 15:36] LABS: BASOPHILS # (AUTO) 0.06 x10^3/uL (0-0.1); BASOPHILS % (AUTO) 1 % (0-1); EOSINOPHILS # (AUTO) 0.16 x10^3/uL (0-0.4); EOSINOPHILS % (AUTO) 2 % (1-7); LYMPHOCYTES # (AUTO) 3.27 x10^3/uL (1-3.4); LYMPHOCYTES % (AUTO) 41 % (22-44); MD NO; MEAN CORPUSCULAR HEMOGLOBIN 34.7 pg (27.0-34.8); MEAN CORPUSCULAR HGB CONC 33.1 g/dL (32.4-35.8); MEAN CORPUSCULAR VOLUME 104.8 fL (80-100); MEAN PLATELET VOLUME 8.9 fL (7.4-10.4); MONOCYTES % (AUTO) 9 % (2-9); NEUTROPHILS # (AUTO) 3.75 x10^3/uL (1.8-6.8); NEUTROPHILS % (AUTO) 47 % (42-75); PLATELET COUNT 197 x10^3/uL (130-400); RED BLOOD COUNT 4.18 x10^6/uL (3.82-5.3); RED CELL DISTRIBUTION WIDTH 15.4 % (9.6-15.2)
--- NOTE | 2019-05-09 16:40 | NUR ---
PT CONTINUES TO REST ON RODOLFO THIBODEAUX, PT WITH NO NEEDS AT THIS TIME.
[2019-05-09 16:59] VITALS: BP 114/74
== END 2019-05-09 17:19 | disposition home or self-care (01) ==
LOC: ED 14:08
DX: B34.9 Viral infection, unspecified (principal); R11.10 Vomiting, unspecified; I10 Essential (primary) hypertension; J44.9 Chronic obstructive pulmonary disease, unspecified; F17.200 Nicotine dependence, unspecified, uncomplicated; E78.5 Hyperlipidemia, unspecified; M19.90 Unspecified osteoarthritis, unspecified site; Z90.89 Acquired absence of other organs
CPT/HCPCS: 36415; 71045; 80053; 84484; 85025; 93005; 96360; 99285; J7030

== ENCOUNTER 2019-05-10 17:47 | Emergency (ER) | payer MEDICARE ==
[~2019-05-10] VITALS: Ht 152.4 cm; Wt 55.0 kg
--- NOTE | 2019-05-10 17:54 | NUR ---
BIBA. PT C/O COUGH X 6 MONTH /+ETOH(LAST DRINK TODAY/PT DOESN'T REMEMBER HOW MUCH SHE HAD) PT'S AOX4. RESPS EVEN AND UNLABORED. BP/SPO2 MONITORS IN PLACE. CALL LIGHT WITHIN REACH. EDMD AT BEDSIDE TO EVALUATE AT THIS TIME.
--- NOTE | 2019-05-10 18:03 | NUR ---
ALL FALL PRECAUTION PLACED. YELLOW SOCKS PLACED. RAILS UP X 2. CALL LIGHT WITHIN REACH. THIS RN EDUCATED REGARDING USE OF CALL LIGHT.
--- NOTE | 2019-05-10 19:01 | NUR ---
report given to sinai andujar.
--- NOTE | 2019-05-10 19:04 | NUR ---
Report received from CARTER Jones. This RN to assume care.
[2019-05-10 19:27] VITALS: BP 93/54
--- NOTE | 2019-05-10 19:38 | NUR ---
Patient ambulated to bathroom. She does not have a steady gait and was unable to ambulate without assistance.
--- NOTE | 2019-05-10 20:08 | NUR ---
Spoke with patient's boyfriend who states he can pick her up. Advised boyfriend that I would contact him when she is safe to discharge.
--- NOTE | 2019-05-10 20:09 | NUR ---
Boyfriend -- [facility] [phone]
== END 2019-05-10 21:36 | disposition home or self-care (01) ==
LOC: ED 19:31
DX: F10.229 Alcohol dependence with intoxication, unspecified (principal); F17.200 Nicotine dependence, unspecified, uncomplicated; R05 Cough; I10 Essential (primary) hypertension; J44.9 Chronic obstructive pulmonary disease, unspecified; E78.5 Hyperlipidemia, unspecified; Y90.0 Blood alcohol level of less than 20 mg/100 ml
CPT/HCPCS: 99283

== ENCOUNTER 2019-06-05 17:10 | Inpatient (IN) | payer MEDICARE, MEDICAID ==
[~2019-06-05] VITALS: Ht 152.4 cm; Wt 44.8 kg
--- NOTE | 2019-06-05 17:33 | NUR ---
BIB EMS, PT LIVES IN HER TRUCK BY THE [employer]. PT RPTS SHE WAS D/C FROM [facility] SHE THINKS LAST WEEK WITH PNM. PT RPTS SHE HAD HER MEDICATIONS STOLLEN. PT C/O A HEAVY CHEST PRESSURE IN THE CENTER OF HER CHEST WHICH STARTED YESTERDAY AND HAS PROGRESSIVELY WORSENED. +SOB AND STRONG LOOSE SOUNDING COUGH. PT ADMITS TO HEAVY SMOKING AND ALCOHOL ABUSE. STATES SHE HAS BEEN DRINKING WINE TODAY BUT NORMALLY DRINKS WHISKEY. LAST DRINK APPROX 1 HOUR AGO. PT ON ALL MONITORS, PIV EST AND LABS DRAWN. SBAR RPT TO CARTER PAN
--- NOTE | 2019-06-05 17:35 | NUR ---
ekg done by this tech
--- NOTE | 2019-06-05 17:53 | NUR ---
pt in room resting comfortably. mask in place. cardiac, nibp and o2 monitoring in place. warm blanket provided. pt expresses no wants or needs at this time.
[2019-06-05 17:55] LABS: MEAN CORPUSCULAR HEMOGLOBIN 33.9 pg (27.0-34.8); MEAN CORPUSCULAR HGB CONC 32.8 g/dL (32.4-35.8); MEAN CORPUSCULAR VOLUME 103.1 fL (80-100); MEAN PLATELET VOLUME 8.4 fL (7.4-10.4); PLATELET COUNT 220 x10^3/uL (130-400); RED BLOOD COUNT 3.73 x10^6/uL (3.82-5.3)
[2019-06-05 17:56] LABS: MD YES
[2019-06-05 18:01] LABS: ALBUMIN 3.4 g/dL (3.4-5.0); ANION GAP 9 mmol/L (5-15); CALCIUM 9.2 mg/dL (8.5-10.1); CHLORIDE 111 mmol/L (98-107); CREATININE 0.73 mg/dL (0.55-1.02)
[2019-06-05 18:04] LABS: TROPONIN I < 0.015 ng/mL (0.000-0.045)
[2019-06-05 18:26] LABS: BAND#(MANUAL) 0.06 x10^3/uL; BANDS%(MANUAL) 1 % (0-7); BASOS#(MANUAL) 0.06 x10^3/uL (0-0.1); BASOS% (MANUAL) 1 % (0-1); EOS#(MANUAL) 0.55 x10^3/uL (0.0-0.4); EOS% (MANUAL) 9 % (1-7); LYMPH#(MANUAL) 3.05 x10^3/uL (1-3.4); LYMPHS% (MANUAL) 50 % (22-44); MONOS#(MANUAL) 0.37 x10^3/uL (0.3-2.7); MONOS% (MANUAL) 6 % (2-9); SEG#(MANUAL) 2.01 x10^3/uL (1.8-6.8); SEGS% (MANUAL) 33 % (42-75)
[2019-06-05 18:28] LABS: <PLATELET ESTIMATE> ADEQUATE; <PLT MORPHOLOGY> NORMAL PLT MORPH
[2019-06-05] MEDS ORDERED: SODIUM CHLORIDE FLUSH 10ML SYR IVF ONE (18:30)
--- NOTE | 2019-06-05 18:30 | NUR ---
2nd iv started for cta. pt has no wants or needs at this time.
[2019-06-05] MEDS ORDERED: OMNIPAQUE 350 MG/ML, 100ML BOTTLE ONE (18:50)
--- NOTE | 2019-06-05 19:38 | NUR ---
ATTEMPTED TO ROOM AIR PT. PT ROOM AIR OF 82% MD MADE AWARE.
[2019-06-05] MEDS ORDERED: SODIUM CHLORIDE 0.9% 1,000 ML IV SCH (20:29)
[2019-06-05] MEDS ORDERED: ONDANSETRON 2MG/ML, 2ML IVPush PRN (20:30)
[2019-06-05] MEDS ORDERED: POLYETHYLENE GLYCOL 17 GM PACKET PO PRN (20:30)
[2019-06-05] MEDS ORDERED: NICOTINE 21 MG/24 HR PATCH.TD24 TD ONE (20:30)
[2019-06-05] MEDS ORDERED: BISACODYL 10 MG SUPP PR PRN (20:30)
[2019-06-05] MEDS ORDERED: THIAMINE 100MG TABLET PO ONE (21:00)
[2019-06-05] MEDS ORDERED: ALBUTEROL/IPRATROPIUM 2.5MG/0.5MG, 3 ML ONE (22:58)
[2019-06-05] MEDS: HEPARIN 5,000 UNITS/ML, 1ML SQ SCH (22:59)
[2019-06-05] MEDS: AZITHROMYCIN 500 MG in SODIUM CHLORIDE 0.9% 250 ML IV SCH (22:59)
[2019-06-05] MEDS: IBUPROFEN 600 MG TABLET PO SCH (22:59)
[2019-06-05] MEDS: GABAPENTIN 400 MG CAPSULE PO SCH (22:59)
[2019-06-05] MEDS: methylPREDNISolone SOD SUCC 125 MG/2 ML IVPush SCH (22:59)
[2019-06-05] MEDS: AMITRIPTYLINE 50 MG TABLET PO SCH (22:59)
[2019-06-05] MEDS: ALBUTEROL/IPRATROPIUM 2.5MG/0.5MG, 3 ML NPPB SCH (23:00)
[2019-06-06 01:01] VITALS: BP 103/64
[2019-06-06 01:33] VITALS: BP 103/64
[2019-06-06] MEDS: methylPREDNISolone SOD SUCC 125 MG/2 ML IVPush SCH ×4 (03:36→21:06)
[2019-06-06] MEDS: HEPARIN 5,000 UNITS/ML, 1ML SQ SCH ×3 (06:17→23:10)
[2019-06-06 06:22] LABS: BASOPHILS # (AUTO) 0.02 x10^3/uL (0-0.1); BASOPHILS % (AUTO) 1 % (0-1); EOSINOPHILS # (AUTO) 0.02 x10^3/uL (0-0.4); EOSINOPHILS % (AUTO) 1 % (1-7); LYMPHOCYTES # (AUTO) 0.49 x10^3/uL (1-3.4); LYMPHOCYTES % (AUTO) 15 % (22-44); MD NO; MEAN CORPUSCULAR HEMOGLOBIN 34.6 pg (27.0-34.8); MEAN CORPUSCULAR HGB CONC 33.2 g/dL (32.4-35.8); MEAN CORPUSCULAR VOLUME 104.4 fL (80-100); MEAN PLATELET VOLUME 8.4 fL (7.4-10.4); MONOCYTES # (AUTO) 0.02 x10^3/uL (0.2-0.8); MONOCYTES % (AUTO) 1 % (2-9); NEUTROPHILS # (AUTO) 2.67 x10^3/uL (1.8-6.8); NEUTROPHILS % (AUTO) 83 % (42-75); PLATELET COUNT 194 x10^3/uL (130-400); RED BLOOD COUNT 3.61 x10^6/uL (3.82-5.3); RED CELL DISTRIBUTION WIDTH 15.7 % (9.6-15.2)
[2019-06-06 06:42] VITALS: BP 115/83
[2019-06-06] MEDS: ALBUTEROL/IPRATROPIUM 2.5MG/0.5MG, 3 ML NPPB SCH ×4 (07:00→20:10)
[2019-06-06] MEDS: BUDESONIDE 0.5 MG/2 ML INHA NPPB SCH ×2 (07:12→21:00)
[2019-06-06] MEDS: IBUPROFEN 600 MG TABLET PO SCH ×3 (08:34→21:05)
[2019-06-06] MEDS: GABAPENTIN 400 MG CAPSULE PO SCH ×2 (08:34→21:05)
[2019-06-06] MEDS: FOLIC ACID 1 MG TABLET PO SCH (08:34)
[2019-06-06] MEDS: SENNA/DOCUSATE TABLET PO SCH (08:34)
[2019-06-06] MEDS: OMEPRAZOLE 10 MG CAPSULE.DR PO SCH (08:34)
[2019-06-06] MEDS ORDERED: ALBUTEROL SULFATE 2.5 MG/3 ML NPPB PRN (09:00)
[2019-06-06] MEDS: HYDROcodone/APAP 5/325 TABLET PO PRN ×2 (12:00→17:18)
[2019-06-06] MEDS ORDERED: THIAMINE 100MG TABLET ONE (12:53)
[2019-06-06 13:47] VITALS: BP 115/68
[2019-06-06] MEDS: THIAMINE 100 MG/ML, 2ML IM SCH (14:30)
[2019-06-06] MEDS: SODIUM CHLORIDE 0.9% 1,000 ML IV SCH (16:12)
[2019-06-06] MEDS: LORazepam 2 MG/ML, 1ML IVPush PRN ×3 (16:12→23:11)
[2019-06-06 18:46] VITALS: BP 131/77
[2019-06-06] MEDS: AMITRIPTYLINE 50 MG TABLET PO SCH (21:05)
[2019-06-06] MEDS: AZITHROMYCIN 500 MG in SODIUM CHLORIDE 0.9% 250 ML IV SCH (23:11)
[2019-06-07] MEDS: LORazepam 2 MG/ML, 1ML IVPush PRN (01:42)
[2019-06-07] MEDS: HYDROcodone/APAP 5/325 TABLET PO PRN (02:15)
[2019-06-07 02:22] VITALS: BP 151/99
[2019-06-07] MEDS ORDERED: LORazepam 2 MG/ML, 1ML IV PRN ×5 (04:00)
[2019-06-07] MEDS ORDERED: LORazepam 0.5MG TABLET PO PRN (04:00)
[2019-06-07] MEDS ORDERED: LORazepam 1MG TABLET PO PRN ×4 (04:00)
[2019-06-07] MEDS: SODIUM CHLORIDE 0.9% 1,000 ML IV SCH ×2 (04:01→16:11)
[2019-06-07] MEDS: DIAZEPAM 10 MG TABLET PO SCH ×4 (04:01→20:44)
[2019-06-07 06:44] VITALS: BP 126/86
[2019-06-07] MEDS: BUDESONIDE 0.5 MG/2 ML INHA NPPB SCH ×2 (07:00→20:00)
[2019-06-07] MEDS: ALBUTEROL/IPRATROPIUM 2.5MG/0.5MG, 3 ML NPPB SCH ×4 (07:00→20:00)
[2019-06-07] MEDS: HEPARIN 5,000 UNITS/ML, 1ML SQ SCH ×3 (08:18→23:15)
[2019-06-07 08:41] LABS: MEAN CORPUSCULAR HEMOGLOBIN 33.7 pg (27.0-34.8); MEAN CORPUSCULAR HGB CONC 32.2 g/dL (32.4-35.8); MEAN CORPUSCULAR VOLUME 104.8 fL (80-100); MEAN PLATELET VOLUME 8.5 fL (7.4-10.4); PLATELET COUNT 217 x10^3/uL (130-400); RED BLOOD COUNT 3.81 x10^6/uL (3.82-5.3); RED CELL DISTRIBUTION WIDTH 15.4 % (9.6-15.2)
[2019-06-07 08:45] LABS: ANION GAP 7 mmol/L (5-15); CALCIUM 9.9 mg/dL (8.5-10.1); CHLORIDE 105 mmol/L (98-107); CREATININE 0.88 mg/dL (0.55-1.02)
[2019-06-07] MEDS: SENNA/DOCUSATE TABLET PO SCH (09:00)
[2019-06-07] MEDS ORDERED: FOLIC ACID 1 MG TABLET PO SCH (09:00)
[2019-06-07] MEDS: IBUPROFEN 600 MG TABLET PO SCH ×3 (09:00→20:44)
[2019-06-07] MEDS: OMEPRAZOLE 10 MG CAPSULE.DR PO SCH (09:21)
[2019-06-07] MEDS: GABAPENTIN 400 MG CAPSULE PO SCH ×2 (09:21→20:44)
[2019-06-07] MEDS: FOLIC ACID 1 MG TABLET PO SCH (09:22)
[2019-06-07] MEDS: methylPREDNISolone SOD SUCC 125 MG/2 ML IVPush SCH ×3 (09:22→20:45)
[2019-06-07 09:25] LABS: BASOPHILS # (AUTO) 0.05 x10^3/uL (0-0.1); BASOPHILS % (AUTO) 0 % (0-1); EOSINOPHILS # (AUTO) 0.01 x10^3/uL (0-0.4); EOSINOPHILS % (AUTO) 0 % (1-7); LYMPHOCYTES # (AUTO) 0.69 x10^3/uL (1-3.4); LYMPHOCYTES % (AUTO) 4 % (22-44); MD SCAN; MONOCYTES # (AUTO) 0.95 x10^3/uL (0.2-0.8); MONOCYTES % (AUTO) 6 % (2-9); NEUTROPHILS # (AUTO) 14.13 x10^3/uL (1.8-6.8); NEUTROPHILS % (AUTO) 89 % (42-75)
[2019-06-07] MEDS: THIAMINE 100 MG/ML, 2ML IM SCH (10:31)
[2019-06-07 13:15] VITALS: BP 104/64
[2019-06-07 13:17] VITALS: BP 134/85
[2019-06-07 19:08] VITALS: BP 151/91
[2019-06-07] MEDS: AMITRIPTYLINE 50 MG TABLET PO SCH (20:44)
[2019-06-07] MEDS: AZITHROMYCIN 500 MG in SODIUM CHLORIDE 0.9% 250 ML IV SCH (23:15)
[2019-06-08 00:14] VITALS: BP 150/87
[2019-06-08] MEDS: SODIUM CHLORIDE 0.9% 1,000 ML IV SCH ×2 (03:26→13:31)
[2019-06-08] MEDS: DIAZEPAM 5 MG TABLET PO SCH ×2 (04:04→10:00)
[2019-06-08 06:24] LABS: BASOPHILS # (AUTO) 0.01 x10^3/uL (0-0.1); BASOPHILS % (AUTO) 0 % (0-1); EOSINOPHILS % (AUTO) 0 % (1-7); LYMPHOCYTES # (AUTO) 0.68 x10^3/uL (1-3.4); LYMPHOCYTES % (AUTO) 5 % (22-44); MD NO; MEAN CORPUSCULAR HEMOGLOBIN 34.2 pg (27.0-34.8); MEAN CORPUSCULAR HGB CONC 33.1 g/dL (32.4-35.8); MEAN CORPUSCULAR VOLUME 103.3 fL (80-100); MEAN PLATELET VOLUME 9.5 fL (7.4-10.4); MONOCYTES # (AUTO) 0.81 x10^3/uL (0.2-0.8); MONOCYTES % (AUTO) 6 % (2-9); NEUTROPHILS # (AUTO) 11.11 x10^3/uL (1.8-6.8); NEUTROPHILS % (AUTO) 88 % (42-75); PLATELET COUNT 197 x10^3/uL (130-400); RED BLOOD COUNT 3.42 x10^6/uL (3.82-5.3); RED CELL DISTRIBUTION WIDTH 15.1 % (9.6-15.2)
[2019-06-08 06:35] LABS: ANION GAP 7 mmol/L (5-15); CALCIUM 8.8 mg/dL (8.5-10.1); CHLORIDE 109 mmol/L (98-107); CREATININE 0.69 mg/dL (0.55-1.02)
[2019-06-08] MEDS: ALBUTEROL/IPRATROPIUM 2.5MG/0.5MG, 3 ML NPPB SCH ×2 (07:05→11:15)
[2019-06-08] MEDS: HEPARIN 5,000 UNITS/ML, 1ML SQ SCH (07:42)
[2019-06-08 07:50] VITALS: BP 138/89
[2019-06-08] MEDS ORDERED: BUDESONIDE 0.5 MG/2 ML INHA NPPB SCH (09:00)
[2019-06-08] MEDS: SENNA/DOCUSATE TABLET PO SCH (10:06)
[2019-06-08] MEDS: GABAPENTIN 400 MG CAPSULE PO SCH (10:06)
[2019-06-08] MEDS: FOLIC ACID 1 MG TABLET PO SCH (10:06)
[2019-06-08] MEDS: THIAMINE 100 MG/ML, 2ML IM SCH (10:06)
[2019-06-08] MEDS: IBUPROFEN 600 MG TABLET PO SCH ×2 (10:06→14:41)
[2019-06-08] MEDS: OMEPRAZOLE 10 MG CAPSULE.DR PO SCH (10:06)
[2019-06-08] MEDS ORDERED: methylPREDNISolone SOD SUCC 40 MG/ML IV SCH (10:30)
[2019-06-08] MEDS ORDERED: IBUP-1222 PO (11:03)
[2019-06-08] MEDS ORDERED: FLUT12AE2 INH (11:03)
[2019-06-08 12:18] VITALS: BP 153/84
[2019-06-08] MEDS ORDERED: PRED10TA14 PO (12:31)
--- NOTE | 2019-06-08 14:07 | NUR ---
Needs FWW Addendum: 06/08/19 at 1407 by Christopher Crum PT Amended: Links added.
== END 2019-06-08 15:08 | disposition home or self-care (01) | DRG 189 ==
LOC: ED 17:34 → EDIP 19:37 → 4EST 22:35
PROVIDERS: ADMIT Family Medicine; ATTEND Family Medicine
DX: J96.21 Acute and chronic respiratory failure with hypoxia (principal); J44.1 Chronic obstructive pulmonary disease with (acute) exacerbation; F10.220 Alcohol dependence with intoxication, uncomplicated; M19.90 Unspecified osteoarthritis, unspecified site; M41.9 Scoliosis, unspecified; G31.2 Degeneration of nervous system due to alcohol; I10 Essential (primary) hypertension; E78.5 Hyperlipidemia, unspecified; Z91.14 Patient's other noncompliance with medication regimen; Z88.2 Allergy status to sulfonamides; Z79.899 Other long term (current) drug therapy
CPT/HCPCS: 36415; 71045; 71275; 80048; 80307; 82040; 83605; 83880; 84484; 85025; 85379; 93005; 94640; 99285; G0378; J0456; J1644; J3411; J7626; Q9967; J2060; J2920; J2930; J7030; J7050

== ENCOUNTER 2019-08-27 15:01 | Emergency (ER) | payer MEDICARE, MEDICAID ==
[~2019-08-27] VITALS: Ht 157.5 cm; Wt 45.0 kg
[~2019-08-27 15:01] MED LIST changes: +PRED10TA14 PO
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
--- NOTE | 2019-08-27 15:32 | NUR ---
C-COLLAR APPLIED PER ERPA ORDERS. LAB AT BEDSIDE AT THIS TIME. PT EDUCATED MBA INTERN LIGHT AND NOT TO GET UP FROM BED WITHOUT RN PRESENT. PT VERBALIZES UNDERSTANDING.
--- NOTE | 2019-08-27 15:41 | NUR ---
PT TAKEN TO IMAGING.
[2019-08-27 15:55] LABS: MEAN CORPUSCULAR HEMOGLOBIN 31.6 pg (27.0-34.8); MEAN CORPUSCULAR HGB CONC 32.6 g/dL (32.4-35.8); MEAN CORPUSCULAR VOLUME 97.2 fL (80-100); MEAN PLATELET VOLUME 8.1 fL (7.4-10.4); PLATELET COUNT 287 x10^3/uL (130-400); RED CELL DISTRIBUTION WIDTH 18.3 % (9.6-15.2)
[2019-08-27 15:56] LABS: ALANINE AMINOTRANSFERASE 62 U/L (12-78); ALBUMIN 3.4 g/dL (3.4-5.0); ANION GAP 11 mmol/L (5-15); CALCIUM 8.9 mg/dL (8.5-10.1); CHLORIDE 109 mmol/L (98-107); CREATININE 0.74 mg/dL (0.55-1.02)
[2019-08-27 16:01] LABS: ALKALINE PHOSPHATASE 59 U/L (45-117); BILIRUBIN,TOTAL 0.5 mg/dL (0.2-1.0); TROPONIN I < 0.015 ng/mL (0.000-0.045)
[2019-08-27] MEDS ORDERED: POTASSIUM CHLORIDE 20 MEQ TAB.ER.PRT PO ONE (16:30)
[2019-08-27] MEDS ORDERED: POTASSIUM CHLORIDE 20 MEQ TAB.ER.PRT ONE ×2 (16:33→16:38)
[2019-08-27 16:49] LABS: MD YES
--- NOTE | 2019-08-27 16:49 | NUR ---
PT AMBULATES WELL TO BATHROOM. BACK IN BED NOW. ERMD IN TO ASSESS PT.
[2019-08-27 16:52] LABS: EOS#(MANUAL) 0.37 x10^3/uL (0.0-0.4); EOS% (MANUAL) 5 % (1-7); LYMPH#(MANUAL) 2.89 x10^3/uL (1-3.4); LYMPHS% (MANUAL) 39 % (22-44); MONOS#(MANUAL) 0.59 x10^3/uL (0.3-2.7); MONOS% (MANUAL) 8 % (2-9); SEG#(MANUAL) 3.55 x10^3/uL (1.8-6.8); SEGS% (MANUAL) 48 % (42-75)
[2019-08-27 16:53] LABS: <PLATELET ESTIMATE> ADEQUATE; <PLT MORPHOLOGY> NORMAL PLT MORPH; ANISOCYTOSIS 1+
[2019-08-27 17:33] VITALS: BP 136/72
== END 2019-08-27 17:39 | disposition home or self-care (01) ==
LOC: ED 16:01
DX: S09.90XA Unspecified injury of head, initial encounter (principal); R07.89 Other chest pain; E87.6 Hypokalemia; K85.90 Acute pancreatitis without necrosis or infection, unspecified; F10.120 Alcohol abuse with intoxication, uncomplicated; R94.31 Abnormal electrocardiogram [ECG] [EKG]; R11.2 Nausea with vomiting, unspecified; M54.2 Cervicalgia; I10 Essential (primary) hypertension; E78.5 Hyperlipidemia, unspecified; J44.9 Chronic obstructive pulmonary disease, unspecified; M19.90 Unspecified osteoarthritis, unspecified site; Y90.9 Presence of alcohol in blood, level not specified; Y08.89XA Assault by other specified means, initial encounter; Y93.89 Activity, other specified; Y92.89 Other specified places as the place of occurrence of the external cause; Y99.8 Other external cause status
CPT/HCPCS: 36415; 70450; 70486; 71045; 72125; 80053; 83690; 84484; 85025; 93005; 99285

== ENCOUNTER 2019-08-31 17:54 | Emergency (ER) | payer MEDICARE, MEDICAID ==
[~2019-08-31] VITALS: Ht 152.4 cm; Wt 45.0 kg
--- NOTE | 2019-08-31 18:33 | NUR ---
ALL RESULTS ARE BACK AT THIS TIME. CHART UP FOR RECHECK.
--- NOTE | 2019-08-31 19:17 | NUR ---
PT ANKLE SPLINTED BY TECH.
[2019-08-31] MEDS ORDERED: IBUPROFEN 600 MG TABLET ONE (20:16)
--- NOTE | 2019-08-31 20:22 | NUR ---
SACK REPAIRER PER APR. SNACKS GIVEN, PT APPRECIATIVE. SPOKE WITH PT SON, KATHIA. KATHIA TO COME PICK PT UP. KATHIA STATES IT WILL TAKE ABOUT 2 HRS TO GET HERE. MD AND FORGING MACHINE OPERATOR AWARE.
[2019-08-31] MEDS ORDERED: IBUPROFEN 600 MG TABLET PO ONE (20:30)
[2019-08-31 22:20] VITALS: BP 125/79
--- NOTE | 2019-08-31 22:34 | NUR ---
PT HAS BEEN SLEEPING. RESP EVEN AND UNLABORED. NADN.
--- NOTE | 2019-08-31 22:56 | NUR ---
REPORT GIVEN TO JAZZ MACHADO.
--- NOTE | 2019-08-31 23:15 | NUR ---
SON CALLS TO SAY THAT HE IS COMING TO PICK PT UP, AWAITING HIS ARRIVAL TO SAFELY DISCHARGE THIS PT.
== END 2019-09-01 01:29 | disposition home or self-care (01) ==
LOC: ED 20:57
DX: S82.64XA Nondisplaced fracture of lateral malleolus of right fibula, initial encounter for closed fracture (principal); J44.9 Chronic obstructive pulmonary disease, unspecified; M19.90 Unspecified osteoarthritis, unspecified site; E78.5 Hyperlipidemia, unspecified; I10 Essential (primary) hypertension; Z90.89 Acquired absence of other organs; F17.200 Nicotine dependence, unspecified, uncomplicated; X50.0XXA Overexertion from strenuous movement or load, initial encounter; Y93.89 Activity, other specified; Y92.410 Unspecified street and highway as the place of occurrence of the external cause; Y99.8 Other external cause status
CPT/HCPCS: 29515; 99283

== ENCOUNTER 2019-09-09 11:35 | Emergency (ER) | payer MEDICARE, MEDICAID ==
[~2019-09-09] VITALS: Ht 152.4 cm; Wt 37.5 kg
--- NOTE | 2019-09-09 12:44 | NUR ---
PT RESTING CALMLY IN BED. NO STATED NEEDS. WILL CONTINUE TO MONITOR.
--- NOTE | 2019-09-09 13:45 | NUR ---
ELECTROLOG OPERATOR PLACED ON PT. SHORTLY AFTER, PT GOT OUT OF BED AND WAS FOUND SITTING ON FLOOR. PT UNSURE HOW SHE GOT THERE. PT PLACED BACK IN BED BY STAFF. WILL CONTINUE TO MONITOR.
--- NOTE | 2019-09-09 14:55 | NUR ---
PT RESTING CALMLY IN BED. WILL CONTINUE TO MONITOR.
--- NOTE | 2019-09-09 15:56 | NUR ---
PT CONTINUES TO REST IN BED CALMLY AT THIS TIME. PT EASILY AROUSED TO VERBAL STIMULI. PT PULLED OFF COMBO WELDER. STATED, IT MAKES HER FEEL COLD. PT GIVEN WARM BLANKET. BP CUFF AND O2 SAT MONITORS PLACED BACK ON PT. WILL CONTINUE TO MONITOR.
--- NOTE | 2019-09-09 16:44 | NUR ---
PT RESTING CALMLY IN BED. NON STATED NEEDS. PT OPENING EYES ON OWN. WILL CONTINUE TO MONITOR.
[2019-09-09 17:52] VITALS: BP 122/62
== END 2019-09-09 17:59 | disposition home or self-care (01) ==
LOC: ED 15:10
DX: S00.83XA Contusion of other part of head, initial encounter (principal); F10.220 Alcohol dependence with intoxication, uncomplicated; J44.9 Chronic obstructive pulmonary disease, unspecified; M19.90 Unspecified osteoarthritis, unspecified site; I10 Essential (primary) hypertension; E78.5 Hyperlipidemia, unspecified; W01.0XXA Fall on same level from slipping, tripping and stumbling without subsequent striking against object, initial encounter; Y93.89 Activity, other specified; Y92.410 Unspecified street and highway as the place of occurrence of the external cause; Y99.8 Other external cause status; Y90.9 Presence of alcohol in blood, level not specified
CPT/HCPCS: 36415; 70450; 71045; 80307; 99285

== ENCOUNTER 2019-09-13 08:46 | Emergency (ER) | payer MEDICARE, MEDICAID ==
[~2019-09-13] VITALS: Ht 152.4 cm; Wt 46.7 kg
[2019-09-13 08:51] VITALS: BP 160/85
--- NOTE | 2019-09-13 09:14 | NUR ---
BUILD TECHNICIAN: PT TO ROOM FROM LOBBY VIA W/C
--- NOTE | 2019-09-13 10:03 | NUR ---
Presents for replacement of RIGHT lower leg cast which became wet. CMS intact. Old cast removed-no deformity of skin breaks noted New cast placed by EMS
[2019-09-13] MEDS ORDERED: HYDROcodone/APAP 5/325 TABLET ONE (10:11)
[2019-09-13] MEDS ORDERED: HYDROcodone/APAP 5/325 TABLET PO ONE (10:30)
== END 2019-09-13 10:37 | disposition home or self-care (01) ==
LOC: ED 09:19
DX: S82.401A Unspecified fracture of shaft of right fibula, initial encounter for closed fracture (principal); R00.0 Tachycardia, unspecified; I10 Essential (primary) hypertension; J44.9 Chronic obstructive pulmonary disease, unspecified; W18.30XA Fall on same level, unspecified, initial encounter; Y93.89 Activity, other specified; Y92.89 Other specified places as the place of occurrence of the external cause; Y99.8 Other external cause status
CPT/HCPCS: 99283

== ENCOUNTER 2019-09-20 22:46 | Emergency (ER) | payer MEDICARE, MEDICAID ==
[~2019-09-20] VITALS: Ht 152.4 cm; Wt 45.0 kg
--- NOTE | 2019-09-20 23:50 | NUR ---
PT CAME INTO ED, YELLING OUT AND CRYING "I AM IN PAIN!!!" RN TO BS FOR EVAL, PT REFUSED TO DISCUSS PAST MEDICAL HISTORY OR DIAGNOSIS STATING "I AM HURTING TOO BAD!" "YOU SHOULD ALREADY HAVE THIS INFORMATION". RN UNABLE TO OBTAIN PAST MEDICAL OR SURGICAL HISTORY AT THIS TIME. PT STATES "MY MEDS GOT LIFTED SO I DONT HAVE MY TRAMADOL" AND THAT "I TOOK MY LAST NORCO TODAY BUT I ONLY HAD ONE LEFT". PT PULSES 2+, NAD, PLACED ON SPO2/BP/ECG MONITORING. YEIMI CROWE AT BS FOR EVAL AND POC.
[2019-09-21] MEDS ORDERED: KETOROLAC 30 MG/1 ML IM ONE
[2019-09-21] MEDS ORDERED: KETOROLAC 30 MG/1 ML ONE (00:03)
--- NOTE | 2019-09-21 00:17 | NUR ---
late entry: pt medicated per mar for pain. pt resting in gurney, repositioned for comfort, NAD. WCTM. waiting for rad results.
[2019-09-21 00:46] VITALS: BP 126/77
--- NOTE | 2019-09-21 00:47 | NUR ---
Patient given discharge instructions and they have confirmed that they understand the instructions. Patient uses wheelchair to move around but states she can walk with her walking boot. pt denies additional questions. pt given voucher per request, RODOLFO MARTINEZ. no pt belongings left in room after dc.
== END 2019-09-21 00:49 | disposition home or self-care (01) ==
LOC: ED 09-21 00:01
DX: R07.89 Other chest pain (principal); R00.0 Tachycardia, unspecified; I10 Essential (primary) hypertension; J44.9 Chronic obstructive pulmonary disease, unspecified; E78.5 Hyperlipidemia, unspecified; F17.200 Nicotine dependence, unspecified, uncomplicated; Z90.89 Acquired absence of other organs
CPT/HCPCS: 71046; 93005; 96372; 99283; J1885

== ENCOUNTER → 2019-10-15 | Emergency (ER) | payer MEDICARE, MEDICAID ==
[~2019-10-15] VITALS: Ht 152.4 cm; Wt 45.0 kg
[~2019-10-15] MED LIST changes: +ALBUTEROL/IPRATROPIUM 2.5MG/0.5MG, 3 ML NPPB ONE; +ALBUTEROL/IPRATROPIUM 2.5MG/0.5MG, 3 ML ONE; +KETOROLAC 30 MG/1 ML IVPush ONE; +KETOROLAC 30 MG/1 ML ONE; +MORPHINE SULFATE 4 MG/ML, 1ML IVPush PRN; +MORPHINE SULFATE 4 MG/ML, 1ML ONE; +ONDANSETRON 2MG/ML, 2ML IVPush ONE; +ONDANSETRON 2MG/ML, 2ML ONE; +SODIUM CHLORIDE 0.9% 1,000ML IVBOLUS ONE; +SODIUM CHLORIDE FLUSH 10ML SYR IVF ONE
[2019-10-15 20:14] VITALS: BP 113/62
[2019-10-15 21:23] LABS: BASOPHILS # (AUTO) 0.05 x10^3/uL (0-0.1); BASOPHILS % (AUTO) 1 % (0-1); EOSINOPHILS # (AUTO) 0.36 x10^3/uL (0-0.4); EOSINOPHILS % (AUTO) 4 % (1-7); LYMPHOCYTES # (AUTO) 3.39 x10^3/uL (1-3.4); LYMPHOCYTES % (AUTO) 41 % (22-44); MD NO; MEAN CORPUSCULAR HEMOGLOBIN 32.4 pg (27.0-34.8); MEAN CORPUSCULAR HGB CONC 32.9 g/dL (32.4-35.8); MEAN CORPUSCULAR VOLUME 98.6 fL (80-100); MEAN PLATELET VOLUME 8.4 fL (7.4-10.4); MONOCYTES # (AUTO) 0.95 x10^3/uL (0.2-0.8); MONOCYTES % (AUTO) 11 % (2-9); NEUTROPHILS # (AUTO) 3.56 x10^3/uL (1.8-6.8); NEUTROPHILS % (AUTO) 43 % (42-75); PLATELET COUNT 366 x10^3/uL (130-400); RED BLOOD COUNT 3.98 x10^6/uL (3.82-5.3); RED CELL DISTRIBUTION WIDTH 15.7 % (9.6-15.2)
[2019-10-15 21:35] LABS: ALANINE AMINOTRANSFERASE 42 U/L (12-78); ALBUMIN 3.5 g/dL (3.4-5.0); ANION GAP 12 mmol/L (5-15); CALCIUM 9.6 mg/dL (8.5-10.1); CHLORIDE 109 mmol/L (98-107); CREATININE 1.29 mg/dL (0.55-1.02)
[2019-10-15 21:39] LABS: ALKALINE PHOSPHATASE 60 U/L (45-117); BILIRUBIN,TOTAL 0.5 mg/dL (0.2-1.0); TROPONIN I < 0.015 ng/mL (0.000-0.045)
--- NOTE | 2019-10-15 22:05 | NUR ---
Ambulated to bathroom independently, steady gait
--- NOTE | 2019-10-15 23:15 | NUR ---
Multiple attempts by multiple RNs for IV. Plan for US guided IV. Pt agreeable to plan. CT aware
--- NOTE | 2019-10-15 23:21 | NUR ---
CT DELAY , NEED REQUIRED IV.
--- NOTE | 2019-10-16 00:37 | NUR ---
Pt states she does not want to be stuck for IV again. States she is leaving to find nursing home for tonight and will come back if she feels SOB
--- NOTE | 2019-10-16 00:38 | NUR ---
MD Samson aware pt leaving AMA
--- NOTE | 2019-10-16 00:40 | NUR ---
Provided pt with cab voucher [facility]. Ambulated out of bathroom independently, steady gait
== END ==
LOC: ED 20:33
DX: R07.2 Precordial pain (principal); R06.00 Dyspnea, unspecified; R42 Dizziness and giddiness; Z72.9 Problem related to lifestyle, unspecified; R00.0 Tachycardia, unspecified; F17.210 Nicotine dependence, cigarettes, uncomplicated; I10 Essential (primary) hypertension; E78.5 Hyperlipidemia, unspecified; J44.9 Chronic obstructive pulmonary disease, unspecified; Z90.89 Acquired absence of other organs
CPT/HCPCS: 36415; 80053; 83880; 84484; 85025; 93005; 96374; 96375; 99284; 99406; J1885; J2270; J2405; J7512

== ENCOUNTER 2019-12-23 03:14 | Emergency (ER) | payer MEDICARE, MEDICAID ==
[~2019-12-23] VITALS: Ht 152.4 cm; Wt 46.4 kg
[~2019-12-23 03:14] MED LIST changes: -ALBUTEROL/IPRATROPIUM 2.5MG/0.5MG, 3 ML NPPB ONE; -ALBUTEROL/IPRATROPIUM 2.5MG/0.5MG, 3 ML ONE; -KETOROLAC 30 MG/1 ML IVPush ONE; -KETOROLAC 30 MG/1 ML ONE; -MORPHINE SULFATE 4 MG/ML, 1ML IVPush PRN; -MORPHINE SULFATE 4 MG/ML, 1ML ONE; -ONDANSETRON 2MG/ML, 2ML IVPush ONE; -ONDANSETRON 2MG/ML, 2ML ONE; -SODIUM CHLORIDE 0.9% 1,000ML IVBOLUS ONE; -SODIUM CHLORIDE FLUSH 10ML SYR IVF ONE
--- NOTE | 2019-12-23 03:17 | NUR ---
PT IN RESTROOM
[2019-12-23 03:20] VITALS: BP 128/92
[2019-12-23] MEDS ORDERED: ACETAMINOPHEN 325 MG TABLET ONE (03:58)
[2019-12-23] MEDS ORDERED: ACETAMINOPHEN 325 MG SUPP ONE (03:58)
[2019-12-23] MEDS ORDERED: ACETAMINOPHEN 325 MG TABLET PO ONE (04:00)
--- NOTE | 2019-12-23 04:03 | NUR ---
MEDICATED, DRINKIN WATER. PT IN NAD. VSS.
== END 2019-12-23 04:29 | disposition home or self-care (01) ==
LOC: ED 03:45
DX: G89.11 Acute pain due to trauma (principal); H92.03 Otalgia, bilateral; R51.9 Headache, unspecified; Z72.9 Problem related to lifestyle, unspecified; E78.5 Hyperlipidemia, unspecified; J44.9 Chronic obstructive pulmonary disease, unspecified; M19.90 Unspecified osteoarthritis, unspecified site; I10 Essential (primary) hypertension; Z90.89 Acquired absence of other organs; F17.200 Nicotine dependence, unspecified, uncomplicated; Y04.0XXA Assault by unarmed brawl or fight, initial encounter; Y93.89 Activity, other specified; Y92.89 Other specified places as the place of occurrence of the external cause; Y99.8 Other external cause status
CPT/HCPCS: 99283

== ENCOUNTER 2020-09-09 01:53 | Emergency (ER) | payer MEDICARE, MEDICAID ==
[~2020-09-09] VITALS: Ht 152.4 cm; Wt 43.0 kg
[~2020-09-09 01:53] MED LIST changes: +ATOR-2 PO; -HYDR-3245 PO; +HYDR1TAB53 PO; +METH-640 PO; -METH750T2 PO; +METO50TA82 PO; +NICO-587 TD
[2020-09-09] MEDS ORDERED: IBUPROFEN 600 MG TABLET PO ONE (02:30)
[2020-09-09] MEDS ORDERED: LIDOCAINE-MPF 1%, 5ML INFIL ONE (02:30)
[2020-09-09] MEDS ORDERED: CLINDAMYCIN 300 MG CAPSULE PO ONE (02:30)
[2020-09-09] MEDS ORDERED: LIDOCAINE-MPF 1%, 5ML ONE (02:44)
--- NOTE | 2020-09-09 02:50 | NUR ---
FIRST CONTACT WITH PATIENT. PATIENT RESTING COMFORTABLY ON GURNEY. PATIENT STATES SHE CAME IN TODAY BECAUSE SHE "WAS AT [facility] FOR HOURS AND THEY DID NOTHING". PATIENT HAS A WOUND ON HER RIGHT FORARM WHICH SHE BELIEVES IS A BLACK BITE. PATIENT REPORTS BEING HOMELSS AND LIVING IN HER TRUCK. NO NEEDS AT THIS TIME.
--- NOTE | 2020-09-09 02:55 | NUR ---
I&D KIT AT BEDSIDE.
[2020-09-09] MEDS ORDERED: CLINDAMYCIN 300 MG CAPSULE ONE (03:31)
[2020-09-09] MEDS ORDERED: IBUPROFEN 600 MG TABLET ONE (03:31)
--- NOTE | 2020-09-09 03:37 | NUR ---
PATIENT SLEEPING ON GURNEY, REQUIRED TO BE WOKEN UP TO BE GIVEN MEDS, REQUESTED AND GIVEN WARM BLANKET
[2020-09-09 04:16] VITALS: BP 106/67
--- NOTE | 2020-09-09 04:17 | NUR ---
Patient given discharge instructions and they have confirmed that they understand the instructions. Patient ambulatory with steady gait. NAD, all questions answered appropriately, denies additional needs at this time. No personal belongings left in room after discharge.
== END 2020-09-09 04:20 | disposition home or self-care (01) ==
LOC: ED 02:30
DX: L03.113 Cellulitis of right upper limb (principal); L02.413 Cutaneous abscess of right upper limb; E78.5 Hyperlipidemia, unspecified; J44.9 Chronic obstructive pulmonary disease, unspecified; M19.90 Unspecified osteoarthritis, unspecified site; F17.200 Nicotine dependence, unspecified, uncomplicated
CPT/HCPCS: 10060

== ENCOUNTER 2020-09-13 20:42 | Emergency (ER) | payer MEDICARE, MEDICAID ==
[~2020-09-13] VITALS: Ht 152.4 cm; Wt 45.0 kg
[2020-09-13 23:03] LABS: ALANINE AMINOTRANSFERASE 82 U/L (12-78); ALBUMIN 3.2 g/dL (3.4-5.0); CALCIUM 8.6 mg/dL (8.5-10.1); CREATININE 0.67 mg/dL (0.55-1.02)
[2020-09-13 23:06] LABS: ANION GAP 8 mmol/L (5-15); CHLORIDE 109 mmol/L (98-107)
[2020-09-13 23:08] LABS: ALKALINE PHOSPHATASE 92 U/L (45-117); BILIRUBIN,TOTAL 0.4 mg/dL (0.2-1.0); TOTAL PROTEIN 8.1 g/dL (6.4-8.2); TROPONIN I < 0.015 ng/mL (0.000-0.045)
[2020-09-13 23:10] LABS: MEAN CORPUSCULAR HEMOGLOBIN 33.9 pg (27.0-34.8); MEAN CORPUSCULAR HGB CONC 34.2 g/dL (32.4-35.8); MEAN PLATELET VOLUME 8.5 fL (7.4-10.4); PLATELET COUNT 284 x10^3/uL (130-400); RED BLOOD COUNT 3.87 x10^6/uL (3.82-5.3); RED CELL DISTRIBUTION WIDTH 16.1 % (9.6-15.2)
[2020-09-13 23:42] LABS: ANISOCYTOSIS 1+; BAND#(MANUAL) 0.26 x10^3/uL; BANDS%(MANUAL) 5 % (0-7); BASOS#(MANUAL) 0.26 x10^3/uL (0-0.1); BASOS% (MANUAL) 5 % (0-1); EOS#(MANUAL) 0.46 x10^3/uL (0.0-0.4); EOS% (MANUAL) 9 % (1-7); LYMPHS% (MANUAL) 53 % (22-44); MONOS#(MANUAL) 0.31 x10^3/uL (0.3-2.7); MONOS% (MANUAL) 6 % (2-9); SEG#(MANUAL) 1.12 x10^3/uL (1.8-6.8); SEGS% (MANUAL) 22 % (42-75)
[2020-09-13 23:44] LABS: <PLATELET ESTIMATE> ADEQUATE; LARGE PLATELETS 1+; OVALOCYTES 1+; SMUDGE CELLS 1+
[2020-09-13 23:45] LABS: TARGET CELLS 1+
--- NOTE | 2020-09-14 00:37 | NUR ---
PATIENT LYING IN STRETCHER WITH EYES CLOSED. NAD. WILL CONTINUE TO MONITOR.
[2020-09-14 00:59] VITALS: BP 92/61
--- NOTE | 2020-09-14 04:38 | NUR ---
PATIENT PROVIDED WITH CEREAL AND APPLE JUICE.
--- NOTE | 2020-09-14 05:03 | NUR ---
PATIENT AMBULATORY TO RESTROOM WITH STEADY GAIT. PATIENT REQUESTING TAXI BACK TO [facility]IOR [facility].
== END 2020-09-14 05:23 | disposition home or self-care (01) ==
LOC: ED 22:20
DX: K29.20 Alcoholic gastritis without bleeding (principal); R10.13 Epigastric pain; R07.89 Other chest pain; I10 Essential (primary) hypertension; E78.5 Hyperlipidemia, unspecified; J44.9 Chronic obstructive pulmonary disease, unspecified; F17.200 Nicotine dependence, unspecified, uncomplicated; M19.90 Unspecified osteoarthritis, unspecified site
CPT/HCPCS: 36415; 71045; 80053; 80320; 83690; 84484; 85025; 93005; 99285; G0480